=== PATIENT | male | born 1980 | race Caucasian/White ===

== ENCOUNTER 2016-12-07 21:40 | Emergency (ER) | payer MEDICARE, OTHER ==
[~2016-12-07] VITALS: Ht 175.3 cm; Wt 86.4 kg
[~2016-12-07 21:40] MED LIST: OXYB5 PO
[2016-12-07 22:30] VITALS: BP 132/77
== END 2016-12-07 23:53 | disposition home or self-care (01) ==
LOC: EMS 21:43
DX: T42.6X5A Adverse effect of other antiepileptic and sedative-hypnotic drugs, initial encounter (principal); F12.10 Cannabis abuse, uncomplicated; E11.9 Type 2 diabetes mellitus without complications; F17.210 Nicotine dependence, cigarettes, uncomplicated; Z91.013 Allergy to seafood; Z88.6 Allergy status to analgesic agent; Z88.8 Allergy status to other drugs, medicaments and biological substances; Y92.89 Other specified places as the place of occurrence of the external cause
CPT/HCPCS: 99283

== ENCOUNTER 2016-12-09 23:26 | Inpatient (IN) | payer MEDICARE, MEDICAID ==
[~2016-12-09] VITALS: Ht 175.3 cm; Wt 64.7 kg
[2016-12-09 23:47] LABS: BASOPHILS % (AUTO) 0.9 % (0.0-2.0); EOSINOPHILS % (AUTO) 3.4 % (1.0-6.0); HEMATOCRIT 46.6 % (41-53); HEMOGLOBIN 15.6 g/dL (13.5-17.5); LYMPHOCYTES # (AUTO) 4.7 K/uL (1.0-4.8); LYMPHOCYTES % (AUTO) 41.8 % (22.0-44.0); MEAN CORPUSCULAR HEMOGLOBIN 32.1 pg (26.0-34.0); MEAN CORPUSCULAR HGB CONC 33.5 G/dL (31.0-37.0); MEAN CORPUSCULAR VOLUME 96 fL (80-100); MONOCYTES # (AUTO) 0.6 K/uL (0.1-1.0); MONOCYTES % (AUTO) 5.7 % (2.0-9.0); NEUTROPHILS # (AUTO) 5.4 K/uL (1.8-7.7); NEUTROPHILS % (AUTO) 48.2 % (40.0-70.0); PLATELET COUNT (AUTO) 257 K/uL (150-450); RED BLOOD CELL COUNT(AUTO) 4.86 MIL/uL (4.50-5.90); WHITE BLOOD COUNT (AUTO) 11.2 K/uL (4.5-11.0)
[2016-12-09 23:57] LABS: ANION GAP 11 mmol/L (8-16); CALCIUM, TOTAL 9.3 mg/dL (8.8-10.5); CARBON DIOXIDE 26 mmol/L (22-29); CHLORIDE 102 mmol/L (98-107); CREATININE 0.92 mg/dL (0.60-1.30); GLOMERULAR FILTR. RATE CALC > 60 mL/min (>60); POTASSIUM 4.1 mmol/L (3.5-5.1); SODIUM SERUM 139 mmol/L (136-145); UREA NITROGEN, BLOOD 15 mg/dL (7-18)
[2016-12-10 00:03] LABS: ALANINE AMINOTRANSFERASE 18 U/L (12-78); ALBUMIN 3.9 g/dL (3.4-5.0); ASPARTATE AMINOTRANSFERASE 11 U/L (15-37); BILIRUBIN,TOTAL 0.3 mg/dL (0.1-1.0); TOTAL PROTEIN, SERUM 7.7 g/dL (6.4-8.2)
[2016-12-10] MEDS ORDERED: ZOLPIDEM TARTRATE 10 MG TABLET PO PRN (00:15)
[2016-12-10] MEDS: LORazepam 2 MG TABLET PO PRN ×4 (03:01→19:17)
[2016-12-10 03:37] VITALS: BP 107/72
[2016-12-10] MEDS ORDERED: DiphenhydrAMINE HCL 50 MG/ML VIAL IM ONE (04:45)
[2016-12-10] MEDS ORDERED: INFLUENZA VIRUS VACCINE QVS 2016-17 (3YR+)/PF 60 MCG/0.5 ML SYRINGE IM ONE (04:45)
[2016-12-10] MEDS ORDERED: LORazepam 2 MG/ML VIAL IM ONE (04:45)
[2016-12-10] MEDS ORDERED: LORazepam 2 MG/ML VIAL ONE (04:48)
[2016-12-10] MEDS ORDERED: DiphenhydrAMINE HCL 50 MG/ML VIAL ONE (04:48)
[2016-12-10] MEDS: OLANZapine 5 MG RAPDIS TABLET PO PRN ×3 (08:06→19:17)
[2016-12-10 08:20] VITALS: BP 107/77
[2016-12-10 16:00] VITALS: BP 132/62
[2016-12-10] MEDS: DIVALPROEX SODIUM 500 MG ER TABLET PO SCH (20:11)
[2016-12-11 08:01] VITALS: BP 125/66
[2016-12-11] MEDS: LORazepam 2 MG TABLET PO PRN ×2 (08:24→15:46)
[2016-12-11] MEDS ORDERED: ACETAMINOPHEN 325 MG TABLET PO PRN (14:45)
[2016-12-11] MEDS ORDERED: PROMETHAZINE HCL 25 MG TABLET PO PRN (14:45)
[2016-12-11] MEDS ORDERED: HydrOXYzine PAMOATE 50 MG CAPSULE PO PRN (14:45)
[2016-12-11] MEDS ORDERED: GuaiFENesin/D-METHORPHAN [SUGAR-FREE] 200-20MG/10 ML SYRUP UDCUP PO PRN (14:45)
[2016-12-11] MEDS ORDERED: MAGNESIUM HYDROXIDE SUSPENSION 30 ML UDCUP PO PRN (14:45)
[2016-12-11] MEDS ORDERED: LOPERAMIDE HCL 2 MG CAPSULE PO PRN (14:45)
[2016-12-11] MEDS ORDERED: MAG HYDROX/AL HYDROX/SIMETH ES 30 ML SUSPENSION UDCUP PO PRN (14:45)
[2016-12-11 16:00] VITALS: BP 105/62
[2016-12-11] MEDS: THIAMINE HCL 100 MG TABLET PO SCH (17:00)
[2016-12-11] MEDS ORDERED: TraZODone HCL 100 MG TABLET PO SCH (21:00)
[2016-12-11] MEDS ORDERED: OLANZapine 10 MG RAPDIS TABLET PO SCH (21:00)
[2016-12-11] MEDS ORDERED: QUEtiapine FUMARATE 200 MG TABLET PO SCH (21:00)
[2016-12-11] MEDS: DIVALPROEX SODIUM 500 MG ER TABLET PO SCH (21:38)
[2016-12-12 00:49] VITALS: BP 118/60
[2016-12-12] MEDS: LORazepam 2 MG TABLET PO PRN ×3 (01:37→13:37)
[2016-12-12] MEDS: QUEtiapine FUMARATE 100 MG TABLET PO PRN ×3 (01:37→13:37)
[2016-12-12 08:01] VITALS: BP 103/60
[2016-12-12] MEDS ORDERED: MULTIVITAMINS WITH MINERALS, THERAPEUTIC TABLET PO SCH (09:00)
[2016-12-12] MEDS ORDERED: FOLIC ACID 1 MG TABLET PO SCH (09:00)
[2016-12-12] MEDS ORDERED: NALTREXONE HCL 50 MG TABLET PO SCH (09:00)
[2016-12-12] MEDS: THIAMINE HCL 100 MG TABLET PO SCH (09:27)
[2016-12-12] MEDS ORDERED: BISACODYL 5 MG EC TABLET PO PRN (12:00)
[2016-12-12] MEDS ORDERED: DIVA500T52 PO (13:43)
[2016-12-12] MEDS ORDERED: TRAZ-147 PO (13:43)
[2016-12-12] MEDS ORDERED: NALT50 PO (13:43)
[2016-12-12] MEDS ORDERED: QUET200T29 PO (13:43)
== END 2016-12-12 15:14 | disposition home or self-care (01) | DRG 885 ==
LOC: EMS 23:28 → B3A 12-10 00:10
PROVIDERS: ATTEND Psychiatry & Neurology Psychiatry
DX: F25.0 Schizoaffective disorder, bipolar type (principal); R45.851 Suicidal ideations; D72.828 Other elevated white blood cell count; K59.00 Constipation, unspecified; I10 Essential (primary) hypertension; J45.909 Unspecified asthma, uncomplicated; E11.9 Type 2 diabetes mellitus without complications; R32 Unspecified urinary incontinence; F41.9 Anxiety disorder, unspecified; G47.00 Insomnia, unspecified; F17.210 Nicotine dependence, cigarettes, uncomplicated; F12.10 Cannabis abuse, uncomplicated; Z88.8 Allergy status to other drugs, medicaments and biological substances; Z91.018 Allergy to other foods; Z79.899 Other long term (current) drug therapy; Z71.51 Drug abuse counseling and surveillance of drug abuser; Z91.19 Patient's noncompliance with other medical treatment and regimen; Z28.21 Immunization not carried out because of patient refusal
CPT/HCPCS: 87081; 99285; A0429; G0480; J1200; J2060

== ENCOUNTER 2017-02-04 21:39 | Emergency (ER) | payer MEDICARE, OTHER ==
[~2017-02-04] VITALS: Ht 177.8 cm; Wt 63.6 kg
[~2017-02-04 21:39] MED LIST changes: +DIVA500T52 PO; +NALT50 PO; +QUET200T29 PO; +TRAZ-147 PO
[2017-02-04] MEDS ORDERED: TRIL PO (21:59)
[2017-02-04] MEDS ORDERED: OLAN10TA3 PO (21:59)
[2017-02-04] MEDS ORDERED: ZOLP10 PO (21:59)
[2017-02-04] MEDS ORDERED: PARO20TA24 PO (21:59)
[2017-02-04 22:07] LABS: GLUCOSE,POINT OF CARE 141 MG/DL (70-110)
[2017-02-04 22:32] LABS: BASOPHILS # (AUTO) 0.06 K/uL (0.00-0.20); BASOPHILS % (AUTO) 0.4 % (0.0-2.0); EOSINOPHILS # (AUTO) 0.11 K/uL (0.00-0.70); EOSINOPHILS % (AUTO) 0.76 % (1.0-6.0); HEMATOCRIT 40.6 % (41-53); HEMOGLOBIN 13.9 g/dL (13.5-17.5); LYMPHOCYTES # (AUTO) 3.2 K/uL (1.0-4.8); LYMPHOCYTES % (AUTO) 22.3 % (22.0-44.0); MEAN CORPUSCULAR HEMOGLOBIN 33.4 pg (26.0-34.0); MEAN CORPUSCULAR HGB CONC 34.1 G/dL (31.0-37.0); MEAN CORPUSCULAR VOLUME 98 fL (80-100); MONOCYTES # (AUTO) 0.6 K/uL (0.1-1.0); MONOCYTES % (AUTO) 4.2 % (2.0-9.0); NEUTROPHILS # (AUTO) 10.3 K/uL (1.8-7.7); NEUTROPHILS % (AUTO) 72.3 % (40.0-70.0); PLATELET COUNT (AUTO) 278 K/uL (150-450); RED BLOOD CELL COUNT(AUTO) 4.15 MIL/uL (4.50-5.90); RED CELL DISTRIBUTION WIDTH 14.4 % (11.5-14.5); WHITE BLOOD COUNT (AUTO) 14.3 K/uL (4.5-11.0)
[2017-02-04 22:40] LABS: ANION GAP 9 mmol/L (8-16); CALCIUM, TOTAL 8.9 mg/dL (8.8-10.5); CARBON DIOXIDE 25 mmol/L (22-29); CHLORIDE 105 mmol/L (98-107); GLOMERULAR FILTR. RATE CALC > 60 mL/min (>60); POTASSIUM 3.7 mmol/L (3.5-5.1); SODIUM SERUM 139 mmol/L (136-145); UREA NITROGEN, BLOOD 9 mg/dL (7-18)
[2017-02-04 22:45] LABS: ALANINE AMINOTRANSFERASE 19 U/L (12-78); ALBUMIN 3.7 g/dL (3.4-5.0); ASPARTATE AMINOTRANSFERASE 15 U/L (15-37); BILIRUBIN,TOTAL 0.2 mg/dL (0.1-1.0); TOTAL PROTEIN, SERUM 6.9 g/dL (6.4-8.2)
[2017-02-05 01:41] VITALS: BP 118/80
[2017-02-05] MEDS ORDERED: LORazepam 1 MG TABLET PO ONE (01:45)
[2017-02-05] MEDS ORDERED: OLANZapine 5 MG TABLET PO ONE (01:45)
== END 2017-02-05 01:46 | disposition home or self-care (01) ==
LOC: EMS 21:42
DX: F25.9 Schizoaffective disorder, unspecified (principal); S50.812A Abrasion of left forearm, initial encounter; F41.9 Anxiety disorder, unspecified; E11.9 Type 2 diabetes mellitus without complications; F17.210 Nicotine dependence, cigarettes, uncomplicated; Z88.8 Allergy status to other drugs, medicaments and biological substances; X78.8XXA Intentional self-harm by other sharp object, initial encounter; Y93.89 Activity, other specified; Y92.89 Other specified places as the place of occurrence of the external cause; Y99.8 Other external cause status
CPT/HCPCS: 36415; 80053; 80307; 82962; 85025; 99285; G0480

== ENCOUNTER 2017-02-24 20:27 | Inpatient (IN) | payer MEDICARE, MEDICAID ==
[~2017-02-24] VITALS: Ht 177.8 cm; Wt 59.9 kg
[~2017-02-24 20:27] MED LIST changes: -DIVA500T52 PO; -NALT50 PO; +OLAN10TA3 PO; -OXYB5 PO; +PARO20TA24 PO; -QUET200T29 PO; -TRAZ-147 PO; +TRIL PO; +ZOLP10 PO
[2017-02-24 22:15] LABS: BASOPHILS % (AUTO) 1.2 % (0.0-2.0); EOSINOPHILS % (AUTO) 0.9 % (1.0-6.0); HEMATOCRIT 44.1 % (41-53); HEMOGLOBIN 14.3 g/dL (13.5-17.5); LYMPHOCYTES % (AUTO) 18.4 % (22.0-44.0); MEAN CORPUSCULAR HEMOGLOBIN 32.5 pg (26.0-34.0); MEAN CORPUSCULAR HGB CONC 32.4 G/dL (31.0-37.0); MEAN CORPUSCULAR VOLUME 100 fL (80-100); MONOCYTES % (AUTO) 4.8 % (2.0-9.0); NEUTROPHILS % (AUTO) 74.7 % (40.0-70.0); PLATELET COUNT (AUTO) 310 K/uL (150-450); RED CELL DISTRIBUTION WIDTH 13.6 % (11.5-14.5); WHITE BLOOD COUNT (AUTO) 21.5 K/uL (4.5-11.0)
[2017-02-24 22:33] LABS: ANION GAP 10 mmol/L (8-16); CARBON DIOXIDE 27 mmol/L (22-29); CHLORIDE 99 mmol/L (98-107); CREATININE 0.82 mg/dL (0.60-1.30); GLOMERULAR FILTR. RATE CALC > 60 mL/min (>60); POTASSIUM 4.2 mmol/L (3.5-5.1); SODIUM SERUM 136 mmol/L (136-145); UREA NITROGEN, BLOOD 7 mg/dL (7-18)
[2017-02-24 22:45] LABS: ALANINE AMINOTRANSFERASE 19 U/L (12-78); ALBUMIN 3.7 g/dL (3.4-5.0); ASPARTATE AMINOTRANSFERASE 16 U/L (15-37); BILIRUBIN,TOTAL 0.2 mg/dL (0.1-1.0); TOTAL PROTEIN, SERUM 7.1 g/dL (6.4-8.2)
[2017-02-25] MEDS ORDERED: ZOLPIDEM TARTRATE 10 MG TABLET PO PRN (02:30)
[2017-02-25 08:06] LABS: APPEARANCE,URINE CLEAR (CLEAR); GLUCOSE, URINE (UA) NEGATIVE (NEGATIVE); KETONES,URINE NEGATIVE (NEGATIVE); LEUKOCYTE ESTERASE ,URINE NEGATIVE (NEGATIVE); OCCULT BLOOD,URINE NEGATIVE (NEGATIVE); PH,URINE 6.5 (5.0-8.0); PROTEIN,URINE NEGATIVE (NEGATIVE)
[2017-02-25 08:07] LABS: ADD UA MICROSCOPIC NO
[2017-02-25 16:06] VITALS: BP 100/63
[2017-02-25] MEDS: LORazepam 2 MG TABLET PO PRN (16:20)
[2017-02-25] MEDS ORDERED: GLUCAGON,HUMAN RECOMBINANT 1 MG VIAL IM PRN (18:00)
[2017-02-25] MEDS ORDERED: INSULIN ASPART 100 UNITS/ML SQ PRN (18:00)
[2017-02-26 06:42] VITALS: BP 112/79
[2017-02-26] MEDS: LORazepam 2 MG TABLET PO PRN ×3 (06:47→18:54)
[2017-02-26] MEDS ORDERED: PROMETHAZINE HCL 25 MG TABLET PO PRN (12:30)
[2017-02-26] MEDS ORDERED: LOPERAMIDE HCL 2 MG CAPSULE PO PRN (12:30)
[2017-02-26] MEDS ORDERED: MAG HYDROX/AL HYDROX/SIMETH ES 30 ML SUSPENSION UDCUP PO PRN (12:30)
[2017-02-26] MEDS ORDERED: ACETAMINOPHEN 325 MG TABLET PO PRN (12:30)
[2017-02-26] MEDS ORDERED: GuaiFENesin/D-METHORPHAN [SUGAR-FREE] 200-20MG/10 ML SYRUP UDCUP PO PRN (12:30)
[2017-02-26] MEDS ORDERED: MAGNESIUM HYDROXIDE SUSPENSION 30 ML UDCUP PO PRN (12:30)
[2017-02-26] MEDS: OLANZapine 5 MG TABLET PO PRN (14:52)
[2017-02-26] MEDS: HydrOXYzine PAMOATE 50 MG CAPSULE PO PRN ×2 (14:52→18:54)
[2017-02-26] MEDS ORDERED: OLANZAPINE PAMOATE 405 MG/2.7 ML VIAL IM ONE (15:15)
[2017-02-26] MEDS ORDERED: LORazepam 2 MG/ML VIAL ONE (15:22)
[2017-02-26] MEDS ORDERED: DiphenhydrAMINE HCL 50 MG/ML VIAL ONE (15:22)
[2017-02-26] MEDS ORDERED: HALOPERIDOL LACTATE 5 MG/ML VIAL ONE (15:22)
[2017-02-26] MEDS ORDERED: DiphenhydrAMINE HCL 50 MG/ML VIAL IM ONE (15:30)
[2017-02-26] MEDS ORDERED: HALOPERIDOL LACTATE 5 MG/ML VIAL IM ONE (15:30)
[2017-02-26] MEDS ORDERED: LORazepam 2 MG/ML VIAL IM ONE (15:30)
[2017-02-26 16:03] VITALS: BP 102/63
[2017-02-26] MEDS: THIAMINE HCL 100 MG TABLET PO SCH (17:04)
[2017-02-26] MEDS ORDERED: OLANZapine 5 MG RAPDIS TABLET PO SCH (21:00)
[2017-02-26] MEDS ORDERED: DIVALPROEX SODIUM 500 MG ER TABLET PO SCH (21:00)
[2017-02-27 01:24] VITALS: BP 106/72
[2017-02-27 08:00] VITALS: BP 102/70
[2017-02-27] MEDS: LORazepam 2 MG TABLET PO PRN (08:44)
[2017-02-27] MEDS: OLANZapine 5 MG TABLET PO PRN (08:44)
[2017-02-27] MEDS: HydrOXYzine PAMOATE 50 MG CAPSULE PO PRN (08:44)
[2017-02-27] MEDS: THIAMINE HCL 100 MG TABLET PO SCH (08:45)
[2017-02-27] MEDS ORDERED: FOLIC ACID 1 MG TABLET PO SCH (09:00)
[2017-02-27] MEDS ORDERED: MULTIVITAMINS WITH MINERALS, THERAPEUTIC TABLET PO SCH (09:00)
[2017-02-27] MEDS ORDERED: NALTREXONE HCL 50 MG TABLET PO SCH (09:00)
[2017-02-27] MEDS ORDERED: HALOPERIDOL 5 MG TABLET PO PRN (11:00)
[2017-02-27] MEDS ORDERED: HALOPERIDOL DECANOATE 50 MG/ML VIAL IM ONE (11:00)
[2017-02-27] MEDS ORDERED: NALT50TA10 PO (11:41)
[2017-02-27] MEDS ORDERED: DIVA500T52 PO (11:41)
[2017-03-13] MEDS ORDERED: HALOPERIDOL DECANOATE 50 MG/ML VIAL IM SCH (09:00)
[2017-03-26] MEDS ORDERED: OLANZAPINE PAMOATE 405 MG/2.7 ML VIAL IM SCH (09:00)
== END 2017-02-27 14:00 | disposition home or self-care (01) | DRG 885 ==
LOC: EMS 20:30 → EEVIPCON 20:30 → B3A 02-25 13:37
PROVIDERS: ADMIT Psychiatry & Neurology Psychiatry; ATTEND Psychiatry & Neurology Psychiatry
PROC: GZHZZZZ Group Psychotherapy (ICD-10-PCS; principal; 2017-02-25)
PROC: GZ51ZZZ Individual Psychotherapy, Behavioral (ICD-10-PCS; 2017-02-25)
DX: F25.9 Schizoaffective disorder, unspecified (principal); F12.90 Cannabis use, unspecified, uncomplicated; E78.5 Hyperlipidemia, unspecified; D72.829 Elevated white blood cell count, unspecified; R32 Unspecified urinary incontinence; E11.9 Type 2 diabetes mellitus without complications; F19.10 Other psychoactive substance abuse, uncomplicated; I10 Essential (primary) hypertension; F17.210 Nicotine dependence, cigarettes, uncomplicated; G40.909 Epilepsy, unspecified, not intractable, without status epilepticus; R45.850 Homicidal ideations; Z72.89 Other problems related to lifestyle; Z88.8 Allergy status to other drugs, medicaments and biological substances; Z91.19 Patient's noncompliance with other medical treatment and regimen; Z83.3 Family history of diabetes mellitus; Z79.899 Other long term (current) drug therapy; Z79.4 Long term (current) use of insulin
CPT/HCPCS: 83036; 99285; G0480; J1200; J1630; J1631; J2060

== ENCOUNTER 2017-05-04 18:03 | Inpatient (IN) | payer MEDICARE, MEDICAID ==
[~2017-05-04] VITALS: Ht 175.3 cm; Wt 55.4 kg
[~2017-05-04 18:03] MED LIST changes: +DIVA500T52 PO; +NALT50TA10 PO; -OLAN10TA3 PO; -PARO20TA24 PO; -TRIL PO; -ZOLP10 PO
[2017-05-04 19:50] VITALS: BP 92/60
[2017-05-04] MEDS ORDERED: ACETAMINOPHEN 325 MG TABLET PO PRN (20:30)
[2017-05-04] MEDS ORDERED: PNEUMOCOCCAL VACCINE POLYVALENT 0.5 ML VIAL [PPSV23] IM ONE (21:15)
[2017-05-05] MEDS: LORazepam 2 MG TABLET PO PRN ×3 (02:20→16:54)
[2017-05-05] MEDS: ZOLPIDEM TARTRATE 10 MG TABLET PO PRN ×2 (02:20→21:03)
[2017-05-05 06:19] VITALS: BP 109/62
[2017-05-05 08:13] VITALS: BP 107/60
[2017-05-05 08:37] LABS: BASOPHILS # (AUTO) 0.04 K/uL (0.00-0.20); BASOPHILS % (AUTO) 0.4 % (0.0-2.0); EOSINOPHILS # (AUTO) 0.25 K/uL (0.00-0.70); EOSINOPHILS % (AUTO) 2.19 % (1.0-6.0); HEMATOCRIT 39.5 % (41-53); HEMOGLOBIN 13.2 g/dL (13.5-17.5); LYMPHOCYTES # (AUTO) 2.5 K/uL (1.0-4.8); LYMPHOCYTES % (AUTO) 21.9 % (22.0-44.0); MEAN CORPUSCULAR HEMOGLOBIN 33.1 pg (26.0-34.0); MEAN CORPUSCULAR HGB CONC 33.3 G/dL (31.0-37.0); MEAN CORPUSCULAR VOLUME 99 fL (80-100); MONOCYTES # (AUTO) 0.6 K/uL (0.1-1.0); MONOCYTES % (AUTO) 4.9 % (2.0-9.0); NEUTROPHILS % (AUTO) 70.6 % (40.0-70.0); PLATELET COUNT (AUTO) 276 K/uL (150-450); RED BLOOD CELL COUNT(AUTO) 3.98 MIL/uL (4.50-5.90); RED CELL DISTRIBUTION WIDTH 14.4 % (11.5-14.5); WHITE BLOOD COUNT (AUTO) 11.3 K/uL (4.5-11.0)
[2017-05-05 09:04] LABS: APPEARANCE,URINE CLEAR (CLEAR); GLUCOSE, URINE (UA) NEGATIVE (NEGATIVE); KETONES,URINE TRACE mg/dL (NEGATIVE); LEUKOCYTE ESTERASE ,URINE NEGATIVE (NEGATIVE); OCCULT BLOOD,URINE NEGATIVE (NEGATIVE); PROTEIN,URINE NEGATIVE (NEGATIVE)
[2017-05-05 09:11] LABS: ADD UA MICROSCOPIC NO
[2017-05-05 09:14] LABS: ALANINE AMINOTRANSFERASE 24 U/L (12-78); ALBUMIN 3.6 g/dL (3.4-5.0); ANION GAP 8 mmol/L (8-16); ASPARTATE AMINOTRANSFERASE 16 U/L (15-37); BILIRUBIN,TOTAL 0.3 mg/dL (0.1-1.0); CALCIUM, TOTAL 8.8 mg/dL (8.8-10.5); CARBON DIOXIDE 27 mmol/L (22-29); CHLORIDE 104 mmol/L (98-107); CHOL/HDL RATIO 2.7 (4.2-7.3); CREATININE 0.92 mg/dL (0.60-1.30); GLOMERULAR FILTR. RATE CALC > 60 mL/min (>60); POTASSIUM 4.1 mmol/L (3.5-5.1); SODIUM SERUM 139 mmol/L (136-145); THYROID STIMULATING HORMONE 0.47 uIU/mL (0.36-3.74); TOTAL PROTEIN, SERUM 6.3 g/dL (6.4-8.2); UREA NITROGEN, BLOOD 9 mg/dL (7-18)
[2017-05-05] MEDS: HALOPERIDOL 5 MG TABLET PO PRN ×2 (10:03→18:49)
[2017-05-05] MEDS: DIVALPROEX SODIUM 500 MG ER TABLET PO SCH (21:03)
[2017-05-05] MEDS: OLANZapine 5 MG RAPDIS TABLET PO SCH (21:04)
[2017-05-06] MEDS: HALOPERIDOL 5 MG TABLET PO PRN (08:37)
[2017-05-06] MEDS: LORazepam 2 MG TABLET PO PRN ×3 (08:37→17:53)
[2017-05-06 08:38] VITALS: BP 115/70
[2017-05-06 10:16] LABS: GLUCOSE,POINT OF CARE 95 MG/DL (70-110)
[2017-05-06 16:00] VITALS: BP 119/68
[2017-05-06] MEDS: OLANZapine 5 MG RAPDIS TABLET PO SCH (20:10)
[2017-05-06] MEDS: DIVALPROEX SODIUM 500 MG ER TABLET PO SCH (20:10)
[2017-05-06] MEDS: ZOLPIDEM TARTRATE 10 MG TABLET PO PRN (20:47)
[2017-05-07 06:30] VITALS: BP 108/57
[2017-05-07] MEDS: LORazepam 2 MG TABLET PO PRN ×3 (08:12→19:07)
[2017-05-07] MEDS: HALOPERIDOL 5 MG TABLET PO PRN ×2 (08:12→17:16)
[2017-05-07 08:33] VITALS: BP 116/67
[2017-05-07 11:37] LABS: GLUCOSE,POINT OF CARE 93 MG/DL (70-110)
[2017-05-07 16:00] VITALS: BP 112/66
[2017-05-07] MEDS: ZOLPIDEM TARTRATE 10 MG TABLET PO PRN (20:33)
[2017-05-07] MEDS: DIVALPROEX SODIUM 500 MG ER TABLET PO SCH (20:33)
[2017-05-07] MEDS: OLANZapine 5 MG RAPDIS TABLET PO SCH (20:33)
[2017-05-08 05:34] VITALS: BP 109/62
[2017-05-08] MEDS: LORazepam 2 MG TABLET PO PRN ×3 (06:29→17:47)
[2017-05-08 08:39] VITALS: BP 109/67
[2017-05-08 16:00] VITALS: BP 112/67
[2017-05-08] MEDS: OLANZapine 5 MG RAPDIS TABLET PO SCH (20:27)
[2017-05-08] MEDS: DIVALPROEX SODIUM 500 MG ER TABLET PO SCH (20:27)
[2017-05-08] MEDS: ZOLPIDEM TARTRATE 10 MG TABLET PO PRN (20:27)
[2017-05-09 03:25] VITALS: BP 102/64
[2017-05-09] MEDS: HALOPERIDOL 5 MG TABLET PO PRN ×2 (08:02→16:39)
[2017-05-09] MEDS: LORazepam 2 MG TABLET PO PRN ×4 (08:03→20:39)
[2017-05-09 08:59] VITALS: BP 110/68
[2017-05-09 16:00] VITALS: BP 114/66
[2017-05-09] MEDS: OLANZapine 5 MG RAPDIS TABLET PO SCH (20:39)
[2017-05-09] MEDS: ZOLPIDEM TARTRATE 10 MG TABLET PO PRN (20:39)
[2017-05-09] MEDS: DIVALPROEX SODIUM 500 MG ER TABLET PO SCH (20:39)
[2017-05-10 04:58] VITALS: BP 106/70
[2017-05-10 08:44] VITALS: BP 104/64
[2017-05-10 16:11] VITALS: BP 106/68
[2017-05-10] MEDS: LORazepam 2 MG TABLET PO PRN (18:52)
[2017-05-10] MEDS: OLANZapine 5 MG RAPDIS TABLET PO SCH (20:33)
[2017-05-10] MEDS: DIVALPROEX SODIUM 500 MG ER TABLET PO SCH (20:33)
[2017-05-10] MEDS: ZOLPIDEM TARTRATE 10 MG TABLET PO PRN (20:42)
[2017-05-11 05:24] VITALS: BP 104/67
[2017-05-11 08:29] LABS: BASOPHILS # (AUTO) 0.04 K/uL (0.00-0.20); BASOPHILS % (AUTO) 0.5 % (0.0-2.0); EOSINOPHILS # (AUTO) 0.12 K/uL (0.00-0.70); EOSINOPHILS % (AUTO) 1.66 % (1.0-6.0); HEMATOCRIT 41.2 % (41-53); HEMOGLOBIN 13.7 g/dL (13.5-17.5); LYMPHOCYTES # (AUTO) 2.4 K/uL (1.0-4.8); LYMPHOCYTES % (AUTO) 33.9 % (22.0-44.0); MEAN CORPUSCULAR HEMOGLOBIN 32.8 pg (26.0-34.0); MEAN CORPUSCULAR HGB CONC 33.2 G/dL (31.0-37.0); MEAN CORPUSCULAR VOLUME 99 fL (80-100); MONOCYTES # (AUTO) 0.4 K/uL (0.1-1.0); MONOCYTES % (AUTO) 5.1 % (2.0-9.0); NEUTROPHILS # (AUTO) 4.1 K/uL (1.8-7.7); NEUTROPHILS % (AUTO) 58.9 % (40.0-70.0); PLATELET COUNT (AUTO) 252 K/uL (150-450); RED BLOOD CELL COUNT(AUTO) 4.17 MIL/uL (4.50-5.90); RED CELL DISTRIBUTION WIDTH 14.4 % (11.5-14.5)
[2017-05-11] MEDS: HALOPERIDOL 5 MG TABLET PO PRN (08:31)
[2017-05-11] MEDS: LORazepam 2 MG TABLET PO PRN (08:31)
[2017-05-11 09:08] LABS: ANION GAP 8 mmol/L (8-16); CARBON DIOXIDE 27 mmol/L (22-29); CHLORIDE 106 mmol/L (98-107); CREATININE 0.79 mg/dL (0.60-1.30); GLOMERULAR FILTR. RATE CALC > 60 mL/min (>60); POTASSIUM 4.1 mmol/L (3.5-5.1); SODIUM SERUM 141 mmol/L (136-145); UREA NITROGEN, BLOOD 12 mg/dL (7-18)
[2017-05-11 09:15] VITALS: BP 104/67
[2017-05-11] MEDS ORDERED: OLAN5Z PO (13:47)
[2017-05-14] MEDS ORDERED: TEMA15CA PO (18:44)
[2017-05-14] MEDS ORDERED: QUET300T2 PO (18:44)
[2017-05-14] MEDS ORDERED: ZIPR20CA2 PO (18:44)
[2017-05-14] MEDS ORDERED: SERT50TA12 PO (18:44)
[2017-05-14] MEDS ORDERED: TRAZ-147 PO (18:44)
[2017-05-14] MEDS ORDERED: BUPR75 PO (18:44)
[2017-05-14] MEDS ORDERED: ZOLP5 PO (18:44)
[2017-05-14] MEDS ORDERED: OXCA300T PO (18:44)
[2017-05-14] MEDS ORDERED: LORA1TAB3 PO (18:44)
== END 2017-05-11 15:50 | disposition home or self-care (01) | DRG 885 ==
LOC: B3A 20:20 → EDSTATUS 20:39
PROVIDERS: ADMIT Psychiatry & Neurology Psychiatry; ATTEND Psychiatry & Neurology Psychiatry
DX: F20.9 Schizophrenia, unspecified (principal); R32 Unspecified urinary incontinence; D72.829 Elevated white blood cell count, unspecified; E78.5 Hyperlipidemia, unspecified; D64.9 Anemia, unspecified; R63.4 Abnormal weight loss
CPT/HCPCS: 82962; 84439; 84443; 87081

== ENCOUNTER 2017-07-15 20:55 | Emergency (ER) | payer MEDICARE, OTHER ==
[~2017-07-15] VITALS: Ht 175.3 cm; Wt 75.0 kg
[~2017-07-15 20:55] MED LIST changes: -NALT50TA10 PO; +OLAN5TAB40 PO
[2017-07-15 21:34] LABS: BASOPHILS # (AUTO) 0.04 K/uL (0.00-0.20); BASOPHILS % (AUTO) 0.4 % (0.0-2.0); EOSINOPHILS # (AUTO) 0.14 K/uL (0.00-0.70); EOSINOPHILS % (AUTO) 1.31 % (1.0-6.0); HEMOGLOBIN 14.4 g/dL (13.5-17.5); LYMPHOCYTES # (AUTO) 3.8 K/uL (1.0-4.8); LYMPHOCYTES % (AUTO) 35.1 % (22.0-44.0); MEAN CORPUSCULAR HEMOGLOBIN 33.8 pg (26.0-34.0); MEAN CORPUSCULAR HGB CONC 34.2 G/dL (31.0-37.0); MEAN CORPUSCULAR VOLUME 99 fL (80-100); MONOCYTES # (AUTO) 0.6 K/uL (0.1-1.0); MONOCYTES % (AUTO) 5.4 % (2.0-9.0); NEUTROPHILS # (AUTO) 6.4 K/uL (1.8-7.7); NEUTROPHILS % (AUTO) 57.9 % (40.0-70.0); PLATELET COUNT (AUTO) 234 K/uL (150-450); RED BLOOD CELL COUNT(AUTO) 4.25 MIL/uL (4.50-5.90); RED CELL DISTRIBUTION WIDTH 14.2 % (11.5-14.5)
[2017-07-15 21:46] LABS: ANION GAP 11 mmol/L (8-16); CALCIUM, TOTAL 9.1 mg/dL (8.8-10.5); CARBON DIOXIDE 28 mmol/L (22-29); CHLORIDE 104 mmol/L (98-107); CREATININE 0.79 mg/dL (0.60-1.30); GLOMERULAR FILTR. RATE CALC > 60 mL/min (>60); POTASSIUM 3.7 mmol/L (3.5-5.1); SODIUM SERUM 143 mmol/L (136-145); UREA NITROGEN, BLOOD 10 mg/dL (7-18)
[2017-07-15 21:58] LABS: ALANINE AMINOTRANSFERASE 23 U/L (12-78); ASPARTATE AMINOTRANSFERASE 16 U/L (15-37); BILIRUBIN,TOTAL 0.4 mg/dL (0.1-1.0); TOTAL PROTEIN, SERUM 7.6 g/dL (6.4-8.2)
[2017-07-15] MEDS ORDERED: HALOPERIDOL 5 MG TABLET PO ONE (23:45)
[2017-07-15 23:55] VITALS: BP 121/87
== END 2017-07-15 23:56 | disposition home or self-care (01) ==
LOC: EMS 20:58
DX: F20.9 Schizophrenia, unspecified (principal); E11.9 Type 2 diabetes mellitus without complications; F17.210 Nicotine dependence, cigarettes, uncomplicated; Z88.8 Allergy status to other drugs, medicaments and biological substances; Z91.013 Allergy to seafood
CPT/HCPCS: 99284

== ENCOUNTER 2017-07-16 02:43 | Emergency (ER) | payer MEDICARE, OTHER ==
[~2017-07-16] VITALS: Ht 175.3 cm; Wt 75.0 kg
[2017-07-16 02:45] VITALS: BP 126/64
== END 2017-07-16 03:05 | disposition home or self-care (01) ==
LOC: EMS 02:45
DX: M25.571 Pain in right ankle and joints of right foot (principal); F41.9 Anxiety disorder, unspecified; F20.9 Schizophrenia, unspecified; E11.9 Type 2 diabetes mellitus without complications; F17.210 Nicotine dependence, cigarettes, uncomplicated; Z88.6 Allergy status to analgesic agent; Z88.8 Allergy status to other drugs, medicaments and biological substances; Z91.013 Allergy to seafood
CPT/HCPCS: 99281

== ENCOUNTER 2017-07-16 20:31 | Emergency (ER) | payer MEDICARE, OTHER | END 2017-07-16 21:11 | disposition left against medical advice (07) | LOC: EMS 20:39 | DX: T17.998A Other foreign object in respiratory tract, part unspecified causing other injury, initial encounter (principal); Z53.21 Procedure and treatment not carried out due to patient leaving prior to being seen by health care provider ==

== ENCOUNTER 2017-07-16 23:28 | Emergency (ER) | payer MEDICARE, OTHER ==
[~2017-07-16] VITALS: Ht 177.8 cm; Wt 72.0 kg
[2017-07-16 23:48] LABS: BASOPHILS # (AUTO) 0.04 K/uL (0.00-0.20); BASOPHILS % (AUTO) 0.3 % (0.0-2.0); EOSINOPHILS # (AUTO) 0.21 K/uL (0.00-0.70); HEMATOCRIT 41.4 % (41-53); HEMOGLOBIN 14.2 g/dL (13.5-17.5); LYMPHOCYTES # (AUTO) 3.3 K/uL (1.0-4.8); LYMPHOCYTES % (AUTO) 28.6 % (22.0-44.0); MEAN CORPUSCULAR HEMOGLOBIN 33.8 pg (26.0-34.0); MEAN CORPUSCULAR HGB CONC 34.4 G/dL (31.0-37.0); MEAN CORPUSCULAR VOLUME 99 fL (80-100); MONOCYTES # (AUTO) 0.8 K/uL (0.1-1.0); MONOCYTES % (AUTO) 7.1 % (2.0-9.0); NEUTROPHILS # (AUTO) 7.2 K/uL (1.8-7.7); NEUTROPHILS % (AUTO) 62.2 % (40.0-70.0); PLATELET COUNT (AUTO) 251 K/uL (150-450); RED CELL DISTRIBUTION WIDTH 14.1 % (11.5-14.5); WHITE BLOOD COUNT (AUTO) 11.5 K/uL (4.5-11.0)
[2017-07-17 00:11] LABS: ANION GAP 9 mmol/L (8-16); CALCIUM, TOTAL 8.7 mg/dL (8.8-10.5); CARBON DIOXIDE 26 mmol/L (22-29); CHLORIDE 107 mmol/L (98-107); CREATININE 0.82 mg/dL (0.60-1.30); GLOMERULAR FILTR. RATE CALC > 60 mL/min (>60); POTASSIUM 3.5 mmol/L (3.5-5.1); SODIUM SERUM 142 mmol/L (136-145); UREA NITROGEN, BLOOD 16 mg/dL (7-18)
[2017-07-17] MEDS ORDERED: LORazepam 2 MG TABLET PO ONE (00:15)
[2017-07-17 00:17] LABS: ALANINE AMINOTRANSFERASE 20 U/L (12-78); ALBUMIN 3.9 g/dL (3.4-5.0); ASPARTATE AMINOTRANSFERASE 14 U/L (15-37); BILIRUBIN,TOTAL 0.3 mg/dL (0.1-1.0); TOTAL PROTEIN, SERUM 7.5 g/dL (6.4-8.2)
[2017-07-17 00:36] VITALS: BP 119/77
== END 2017-07-17 01:08 | disposition home or self-care (01) ==
LOC: EMS 23:29
DX: F91.2 Conduct disorder, adolescent-onset type (principal); F41.9 Anxiety disorder, unspecified; F20.9 Schizophrenia, unspecified; F17.210 Nicotine dependence, cigarettes, uncomplicated; E11.9 Type 2 diabetes mellitus without complications; Z88.6 Allergy status to analgesic agent; Z88.8 Allergy status to other drugs, medicaments and biological substances; Z91.013 Allergy to seafood
CPT/HCPCS: 36415; 80053; 85025; 99285; 99406; G0480

== ENCOUNTER 2018-03-04 19:37 | Emergency (ER) | payer MEDICARE, OTHER ==
[~2018-03-04] VITALS: Ht 175.3 cm; Wt 95.0 kg
[2018-03-04] MEDS ORDERED: ATOR10TA84 PO (19:56)
[2018-03-04] MEDS ORDERED: HYDR50CA10 PO (19:56)
[2018-03-04 21:34] LABS: BASOPHILS % (AUTO) 0.5 % (0.0-2.0); EOSINOPHILS % (AUTO) 0.6 % (1.0-6.0); HEMATOCRIT 42.8 % (41-53); HEMOGLOBIN 14.9 g/dL (13.5-17.5); LYMPHOCYTES # (AUTO) 2.9 K/uL (1.0-4.8); LYMPHOCYTES % (AUTO) 36.9 % (22.0-44.0); MEAN CORPUSCULAR HEMOGLOBIN 32.1 pg (26.0-34.0); MEAN CORPUSCULAR HGB CONC 34.9 G/dL (31.0-37.0); MEAN CORPUSCULAR VOLUME 92 fL (80-100); MONOCYTES # (AUTO) 0.9 K/uL (0.1-1.0); MONOCYTES % (AUTO) 11.7 % (2.0-9.0); NEUTROPHILS # (AUTO) 3.9 K/uL (1.8-7.7); NEUTROPHILS % (AUTO) 50.3 % (40.0-70.0); PLATELET COUNT (AUTO) 196 K/uL (150-450); RED BLOOD CELL COUNT(AUTO) 4.65 MIL/uL (4.50-5.90); RED CELL DISTRIBUTION WIDTH 13.4 % (11.5-14.5)
[2018-03-04 21:42] LABS: ANION GAP 5 mmol/L (8-16); CALCIUM, TOTAL 9.5 mg/dL (8.8-10.5); CARBON DIOXIDE 30 mmol/L (22-29); CHLORIDE 104 mmol/L (98-107); CREATININE 0.92 mg/dL (0.60-1.30); GLOMERULAR FILTR. RATE CALC > 60 mL/min (>60); GLUCOSE,RANDOM 104 mg/dL (70-110); SODIUM SERUM 139 mmol/L (136-145); UREA NITROGEN, BLOOD 13 mg/dL (7-18)
[2018-03-04 21:45] VITALS: BP 126/84
[2018-03-04 21:48] LABS: ALANINE AMINOTRANSFERASE 67 U/L (12-78); ALBUMIN 3.7 g/dL (3.4-5.0); ALKALINE PHOSPHATASE 89 U/L (46-116); ASPARTATE AMINOTRANSFERASE 37 U/L (15-37); BILIRUBIN,TOTAL 0.3 mg/dL (0.1-1.0); TOTAL PROTEIN, SERUM 7.6 g/dL (6.4-8.2); VALPROIC ACID 73 mcg/mL (50-100)
[2018-03-04] MEDS ORDERED: LORazepam 1 MG TABLET PO ONE (22:15)
== END 2018-03-04 22:47 | disposition home or self-care (01) ==
LOC: EMS 19:39
DX: F41.0 Panic disorder [episodic paroxysmal anxiety] (principal); F25.9 Schizoaffective disorder, unspecified; R00.2 Palpitations; R06.02 Shortness of breath; E11.9 Type 2 diabetes mellitus without complications; F17.210 Nicotine dependence, cigarettes, uncomplicated; Z88.8 Allergy status to other drugs, medicaments and biological substances; Z91.013 Allergy to seafood
CPT/HCPCS: 36415; 80053; 80164; 85025; 99284; G0480

== ENCOUNTER 2018-03-14 17:28 | Emergency (ER) | payer MEDICARE, OTHER ==
[~2018-03-14] VITALS: Ht 172.7 cm; Wt 95.5 kg
[~2018-03-14 17:28] MED LIST changes: +ATOR10TA84 PO; +HYDR50CA10 PO
[2018-03-14] MEDS ORDERED: ACETAMINOPHEN 500 MG TABLET PO ONE (17:45)
[2018-03-14 17:49] LABS: BASOPHILS % (AUTO) 0.8 % (0.0-2.0); EOSINOPHILS % (AUTO) 2.1 % (1.0-6.0); HEMOGLOBIN 15.1 g/dL (13.5-17.5); LYMPHOCYTES # (AUTO) 2.6 K/uL (1.0-4.8); LYMPHOCYTES % (AUTO) 35.5 % (22.0-44.0); MEAN CORPUSCULAR HEMOGLOBIN 32.3 pg (26.0-34.0); MEAN CORPUSCULAR HGB CONC 35.2 G/dL (31.0-37.0); MEAN CORPUSCULAR VOLUME 92 fL (80-100); MONOCYTES # (AUTO) 0.8 K/uL (0.1-1.0); NEUTROPHILS # (AUTO) 3.7 K/uL (1.8-7.7); NEUTROPHILS % (AUTO) 50.6 % (40.0-70.0); PLATELET COUNT (AUTO) 203 K/uL (150-450); RED BLOOD CELL COUNT(AUTO) 4.67 MIL/uL (4.50-5.90); RED CELL DISTRIBUTION WIDTH 13.4 % (11.5-14.5)
[2018-03-14] MEDS ORDERED: FE PR (17:54)
[2018-03-14] MEDS ORDERED: OLAN10TA3 PO (17:54)
[2018-03-14] MEDS ORDERED: MOM30 PO (17:54)
[2018-03-14] MEDS ORDERED: TRIH2TAB3 PO (17:54)
[2018-03-14] MEDS ORDERED: IBUP-2071 PO (17:54)
[2018-03-14] MEDS ORDERED: CHLO100T24 PO (17:54)
[2018-03-14] MEDS ORDERED: SIME120L PO (17:54)
[2018-03-14] MEDS ORDERED: LORA2TAB2 PO (17:54)
[2018-03-14] MEDS ORDERED: TRAZ-147 PO (17:54)
[2018-03-14] MEDS ORDERED: BISA10S PR (17:54)
[2018-03-14] MEDS ORDERED: LORA4VIA19 IM (17:54)
[2018-03-14] MEDS ORDERED: OLAN10VI3 IM (17:54)
[2018-03-14] MEDS ORDERED: ZOLP10TA7 PO (17:54)
[2018-03-14 17:58] LABS: ANION GAP 6 mmol/L (8-16); CALCIUM, TOTAL 8.7 mg/dL (8.8-10.5); CARBON DIOXIDE 27 mmol/L (22-29); CHLORIDE 104 mmol/L (98-107); CREATININE 0.89 mg/dL (0.60-1.30); GLOMERULAR FILTR. RATE CALC > 60 mL/min (>60); GLUCOSE,RANDOM 129 mg/dL (70-110); POTASSIUM 3.9 mmol/L (3.5-5.1); SODIUM SERUM 137 mmol/L (136-145); UREA NITROGEN, BLOOD 14 mg/dL (7-18)
[2018-03-14 18:03] LABS: ALANINE AMINOTRANSFERASE 92 U/L (12-78); ALBUMIN 3.6 g/dL (3.4-5.0); ALKALINE PHOSPHATASE 98 U/L (46-116); ASPARTATE AMINOTRANSFERASE 62 U/L (15-37); BILIRUBIN,TOTAL 0.4 mg/dL (0.1-1.0); TOTAL PROTEIN, SERUM 7.5 g/dL (6.4-8.2); VALPROIC ACID 23 mcg/mL (50-100)
[2018-03-14 19:06] LABS: AMPHET/METH SCREEN,URINE NEGATIVE (NEGATIVE); BARBITURATE SCREEN, URINE NEGATIVE (NEGATIVE); BENZODIAZEPINES SCREEN,URINE POSITIVE (NEGATIVE); CANNABINOID SCREEN,URINE NEGATIVE (NEGATIVE); COCAINE SCREEN,URINE NEGATIVE (NEGATIVE); METHADONE SCREEN, URINE NEGATIVE (NEGATIVE); OPIATE SCREEN,URINE NEGATIVE (NEGATIVE)
[2018-03-14 19:07] LABS: PHENCYCLIDINE SCREEN,URINE NEGATIVE (NEGATIVE)
[2018-03-14] MEDS ORDERED: LIDOCAINE HCL/PF 1% 5 ML VIAL ONE (19:28)
[2018-03-14] MEDS ORDERED: CefTRIAXone SODIUM 1 GM/VIAL IM ONE (19:30)
[2018-03-14] MEDS ORDERED: DOXYCYCLINE HYCLATE 100 MG CAPSULE PO ONE (19:30)
[2018-03-14] MEDS ORDERED: LORazepam 2 MG/ML VIAL ONE (19:38)
[2018-03-14] MEDS ORDERED: DiphenhydrAMINE HCL 50 MG/ML VIAL ONE (19:39)
[2018-03-14] MEDS ORDERED: DiphenhydrAMINE HCL 50 MG/ML VIAL IM ONE (19:45)
[2018-03-14] MEDS ORDERED: LORazepam 2 MG/ML VIAL IM ONE (19:45)
[2018-03-14 21:25] VITALS: BP 127/83
[2018-03-14 21:46] LABS: APPEARANCE,URINE SLIGHTLY CLOUDY (CLEAR); GLUCOSE, URINE (UA) NEGATIVE (NEGATIVE); OCCULT BLOOD,URINE NEGATIVE (NEGATIVE); PROTEIN,URINE POS 1+ (NEGATIVE)
[2018-03-14 21:47] LABS: BILIRUBIN,URINE PRELIM. POSITIVE (NEGATIVE); KETONES,URINE 15 mg/dL (NEGATIVE); LEUKOCYTE ESTERASE ,URINE NEGATIVE (NEGATIVE); NITRATE,URINE NEGATIVE (NEGATIVE)
[2018-03-14 21:49] LABS: RBC,URINE 0-2 /HPF (0-2); WBC,URINE 0-2 /HPF (0-5)
[2018-03-14 21:50] LABS: BACTERIA,URINE Rare /HPF (None Seen); MUCUS,URINE Few LPF (None Seen); SQUAMOUS EPITHELIAL CELL,UR Rare /LPF (None Seen)
== END 2018-03-14 23:48 | disposition home or self-care (01) ==
LOC: EMS 17:30
DX: F25.9 Schizoaffective disorder, unspecified (principal); N45.1 Epididymitis; F41.9 Anxiety disorder, unspecified; E11.9 Type 2 diabetes mellitus without complications; F17.210 Nicotine dependence, cigarettes, uncomplicated; Z79.899 Other long term (current) drug therapy; Z88.8 Allergy status to other drugs, medicaments and biological substances
CPT/HCPCS: 36415; 76870; 80053; 80164; 80307; 81001; 85025; 96372; 99285; 99406; G0480; J0696; J1200; J2060; J3490

== ENCOUNTER 2018-04-23 13:34 | Emergency (ER) | payer MEDICARE, OTHER ==
[~2018-04-23] VITALS: Ht 175.3 cm; Wt 91.8 kg
[~2018-04-23 13:34] MED LIST changes: +BISA10S PR; +CHLO100T24 PO; +FE PR; +IBUP-2071 PO; +LORA2TAB2 PO; +LORA4VIA19 IM; +MOM30 PO; +OLAN10TA3 PO; +OLAN10VI3 IM; +SIME120L PO; +TRAZ-147 PO; +TRIH2TAB3 PO; +ZOLP10TA7 PO
[2018-04-23] MEDS ORDERED: TRAZ150 PO (15:07)
[2018-04-23] MEDS ORDERED: BACL5TAB PO (15:07)
[2018-04-23] MEDS ORDERED: FLUD25I IM (15:07)
[2018-04-23] MEDS ORDERED: METH4TAB16 PO (15:07)
[2018-04-23] MEDS ORDERED: GABA-531 PO (15:07)
[2018-04-23] MEDS ORDERED: LORA2TAB2 PO (15:07)
[2018-04-23] MEDS ORDERED: OLAN10TA3 PO ×2 (15:07)
[2018-04-23 15:27] LABS: AMPHET/METH SCREEN,URINE NEGATIVE (NEGATIVE); BARBITURATE SCREEN, URINE NEGATIVE (NEGATIVE); BENZODIAZEPINES SCREEN,URINE NEGATIVE (NEGATIVE); CANNABINOID SCREEN,URINE NEGATIVE (NEGATIVE); COCAINE SCREEN,URINE NEGATIVE (NEGATIVE); METHADONE SCREEN, URINE NEGATIVE (NEGATIVE); OPIATE SCREEN,URINE NEGATIVE (NEGATIVE); PHENCYCLIDINE SCREEN,URINE NEGATIVE (NEGATIVE)
[2018-04-23 16:00] LABS: APPEARANCE,URINE CLEAR (CLEAR); BILIRUBIN,URINE NEGATIVE (NEGATIVE); GLUCOSE, URINE (UA) 100 mg/dL (NEGATIVE); KETONES,URINE 15 mg/dL (NEGATIVE); LEUKOCYTE ESTERASE ,URINE NEGATIVE (NEGATIVE); NITRATE,URINE NEGATIVE (NEGATIVE); OCCULT BLOOD,URINE NEGATIVE (NEGATIVE); PH,URINE 7.5 (5.0-8.0); PROTEIN,URINE NEGATIVE (NEGATIVE); UROBILINOGEN,URINE 0.2 mg/dL (<=1.0)
[2018-04-23 16:16] LABS: BASOPHILS % (AUTO) 0.6 % (0.0-2.0); EOSINOPHILS % (AUTO) 0.4 % (1.0-6.0); HEMATOCRIT 42.9 % (41-53); HEMOGLOBIN 14.9 g/dL (13.5-17.5); LYMPHOCYTES # (AUTO) 3.5 K/uL (1.0-4.8); LYMPHOCYTES % (AUTO) 35.2 % (22.0-44.0); MEAN CORPUSCULAR HEMOGLOBIN 32.4 pg (26.0-34.0); MEAN CORPUSCULAR HGB CONC 34.8 G/dL (31.0-37.0); MEAN CORPUSCULAR VOLUME 93 fL (80-100); MONOCYTES # (AUTO) 0.8 K/uL (0.1-1.0); MONOCYTES % (AUTO) 7.6 % (2.0-9.0); NEUTROPHILS # (AUTO) 5.6 K/uL (1.8-7.7); NEUTROPHILS % (AUTO) 56.2 % (40.0-70.0); PLATELET COUNT (AUTO) 256 K/uL (150-450); RED CELL DISTRIBUTION WIDTH 14.1 % (11.5-14.5)
[2018-04-23 16:17] LABS: BACTERIA,URINE Rare /HPF (None Seen); RBC,URINE None Seen /HPF (0-2); WBC,URINE 0-2 /HPF (0-5)
[2018-04-23 16:18] LABS: SQUAMOUS EPITHELIAL CELL,UR None Seen /LPF (None Seen)
[2018-04-23 16:19] LABS: TRIPLE PHOSPHATE CRYSTAL,UR Few /LPF (None Seen)
[2018-04-23 16:26] LABS: ANION GAP 7 mmol/L (8-16); CALCIUM, TOTAL 8.6 mg/dL (8.8-10.5); CARBON DIOXIDE 29 mmol/L (22-29); CHLORIDE 106 mmol/L (98-107); CREATININE 0.82 mg/dL (0.60-1.30); GLOMERULAR FILTR. RATE CALC > 60 mL/min (>60); GLUCOSE,RANDOM 110 mg/dL (70-110); POTASSIUM 3.7 mmol/L (3.5-5.1); SODIUM SERUM 142 mmol/L (136-145); UREA NITROGEN, BLOOD 11 mg/dL (7-18)
[2018-04-23 16:32] LABS: ALANINE AMINOTRANSFERASE 53 U/L (12-78); ALBUMIN 3.5 g/dL (3.4-5.0); ALKALINE PHOSPHATASE 84 U/L (46-116); ASPARTATE AMINOTRANSFERASE 24 U/L (15-37); BILIRUBIN,TOTAL 0.3 mg/dL (0.1-1.0); TOTAL PROTEIN, SERUM 7.2 g/dL (6.4-8.2)
[2018-04-23 17:08] VITALS: BP 107/69
== END 2018-04-23 17:36 | disposition home or self-care (01) ==
LOC: EMS 13:37
DX: F91.8 Other conduct disorders (principal); F31.9 Bipolar disorder, unspecified; F20.9 Schizophrenia, unspecified; E11.9 Type 2 diabetes mellitus without complications; F17.210 Nicotine dependence, cigarettes, uncomplicated; Z91.013 Allergy to seafood; Z88.8 Allergy status to other drugs, medicaments and biological substances; Z91.018 Allergy to other foods
CPT/HCPCS: 99284

== ENCOUNTER 2018-05-07 20:02 | Emergency (ER) | payer MEDICARE, OTHER ==
[~2018-05-07] VITALS: Ht 175.3 cm; Wt 90.9 kg
[~2018-05-07 20:02] MED LIST changes: +BACL5TAB PO; +FLUD25I IM; +GABA-531 PO; +METH4TAB16 PO; -OLAN5TAB40 PO; -TRAZ-147 PO; +TRAZ150 PO
[2018-05-07] MEDS ORDERED: FLUPH2.5I IM (22:59)
[2018-05-07 23:03] LABS: AMPHET/METH SCREEN,URINE NEGATIVE (NEGATIVE); BARBITURATE SCREEN, URINE NEGATIVE (NEGATIVE); BENZODIAZEPINES SCREEN,URINE NEGATIVE (NEGATIVE); CANNABINOID SCREEN,URINE NEGATIVE (NEGATIVE); COCAINE SCREEN,URINE NEGATIVE (NEGATIVE); METHADONE SCREEN, URINE NEGATIVE (NEGATIVE); OPIATE SCREEN,URINE NEGATIVE (NEGATIVE); PHENCYCLIDINE SCREEN,URINE NEGATIVE (NEGATIVE)
[2018-05-07 23:08] LABS: BASOPHILS % (AUTO) 0.8 % (0.0-2.0); HEMATOCRIT 46.2 % (41-53); LYMPHOCYTES # (AUTO) 3.3 K/uL (1.0-4.8); LYMPHOCYTES % (AUTO) 40.5 % (22.0-44.0); MEAN CORPUSCULAR HEMOGLOBIN 32.4 pg (26.0-34.0); MEAN CORPUSCULAR HGB CONC 34.5 G/dL (31.0-37.0); MEAN CORPUSCULAR VOLUME 94 fL (80-100); MONOCYTES # (AUTO) 0.6 K/uL (0.1-1.0); MONOCYTES % (AUTO) 7.6 % (2.0-9.0); NEUTROPHILS % (AUTO) 49.1 % (40.0-70.0); PLATELET COUNT (AUTO) 192 K/uL (150-450); RED BLOOD CELL COUNT(AUTO) 4.92 MIL/uL (4.50-5.90); RED CELL DISTRIBUTION WIDTH 14.2 % (11.5-14.5)
[2018-05-07 23:16] LABS: ANION GAP 12 mmol/L (8-16); CALCIUM, TOTAL 9.3 mg/dL (8.8-10.5); CARBON DIOXIDE 26 mmol/L (22-29); CHLORIDE 102 mmol/L (98-107); CREATININE 0.93 mg/dL (0.60-1.30); GLOMERULAR FILTR. RATE CALC > 60 mL/min (>60); GLUCOSE,RANDOM 95 mg/dL (70-110); POTASSIUM 4.4 mmol/L (3.5-5.1); SODIUM SERUM 140 mmol/L (136-145); UREA NITROGEN, BLOOD 15 mg/dL (7-18)
[2018-05-07 23:22] LABS: ALANINE AMINOTRANSFERASE 59 U/L (12-78); ALBUMIN 3.7 g/dL (3.4-5.0); ALKALINE PHOSPHATASE 89 U/L (46-116); ASPARTATE AMINOTRANSFERASE 35 U/L (15-37); BILIRUBIN,TOTAL 0.4 mg/dL (0.1-1.0); TOTAL PROTEIN, SERUM 7.6 g/dL (6.4-8.2)
[2018-05-07 23:29] LABS: GLUCOSE,POINT OF CARE 88 MG/DL (70-110)
[2018-05-08] MEDS ORDERED: LORazepam 2 MG TABLET PO ONE (00:15)
[2018-05-08 00:54] VITALS: BP 105/67
== END 2018-05-08 01:24 | disposition home or self-care (01) ==
LOC: EMS 20:03
DX: F25.9 Schizoaffective disorder, unspecified (principal); F17.210 Nicotine dependence, cigarettes, uncomplicated; E11.9 Type 2 diabetes mellitus without complications; F41.9 Anxiety disorder, unspecified; F31.9 Bipolar disorder, unspecified; G47.00 Insomnia, unspecified; Z79.899 Other long term (current) drug therapy; Z88.8 Allergy status to other drugs, medicaments and biological substances; Z91.013 Allergy to seafood
CPT/HCPCS: 36415; 80053; 80307; 82962; 85025; 99284; G0480

== ENCOUNTER 2018-07-14 22:01 | Emergency (ER) | payer MEDICARE, OTHER ==
[~2018-07-14] VITALS: Ht 175.3 cm; Wt 90.9 kg
[~2018-07-14 22:01] MED LIST changes: -CHLO100T24 PO; +FLUPH2.5I IM; -HYDR50CA10 PO; -METH4TAB16 PO
[2018-07-14] MEDS ORDERED: FLUP5 PO (22:14)
[2018-07-14] MEDS ORDERED: DIAZ10 PO (22:14)
[2018-07-14] MEDS ORDERED: LITH600 PO (22:14)
[2018-07-14] MEDS ORDERED: SOLI5 PO (22:14)
[2018-07-14 22:31] LABS: APPEARANCE,URINE CLEAR (CLEAR); BILIRUBIN,URINE NEGATIVE (NEGATIVE); GLUCOSE, URINE (UA) NEGATIVE (NEGATIVE); KETONES,URINE TRACE mg/dL (NEGATIVE); LEUKOCYTE ESTERASE ,URINE NEGATIVE (NEGATIVE); NITRATE,URINE NEGATIVE (NEGATIVE); OCCULT BLOOD,URINE NEGATIVE (NEGATIVE); PH,URINE 5.5 (5.0-8.0); PROTEIN,URINE NEGATIVE (NEGATIVE); UROBILINOGEN,URINE 0.2 mg/dL (<=1.0)
[2018-07-14 22:36] LABS: BASOPHILS % (AUTO) 0.4 % (0.0-2.0); EOSINOPHILS % (AUTO) 1.5 % (1.0-6.0); HEMATOCRIT 41.2 % (41-53); HEMOGLOBIN 14.4 g/dL (13.5-17.5); LYMPHOCYTES # (AUTO) 3.6 K/uL (1.0-4.8); LYMPHOCYTES % (AUTO) 33.5 % (22.0-44.0); MEAN CORPUSCULAR HEMOGLOBIN 33.9 pg (26.0-34.0); MEAN CORPUSCULAR VOLUME 97 fL (80-100); MONOCYTES # (AUTO) 1.1 K/uL (0.1-1.0); NEUTROPHILS # (AUTO) 5.9 K/uL (1.8-7.7); NEUTROPHILS % (AUTO) 54.6 % (40.0-70.0); PLATELET COUNT (AUTO) 243 K/uL (150-450); RED BLOOD CELL COUNT(AUTO) 4.25 MIL/uL (4.50-5.90); RED CELL DISTRIBUTION WIDTH 14.2 % (11.5-14.5)
[2018-07-14 22:47] LABS: ANION GAP 10 mmol/L (8-16); CARBON DIOXIDE 27 mmol/L (22-29); CHLORIDE 104 mmol/L (98-107); CREATININE 1.02 mg/dL (0.60-1.30); GLOMERULAR FILTR. RATE CALC > 60 mL/min (>60); GLUCOSE,RANDOM 131 mg/dL (70-110); POTASSIUM 3.9 mmol/L (3.5-5.1); SODIUM SERUM 141 mmol/L (136-145); UREA NITROGEN, BLOOD 15 mg/dL (7-18)
[2018-07-14 22:52] LABS: AMPHET/METH SCREEN,URINE NEGATIVE (NEGATIVE); BARBITURATE SCREEN, URINE NEGATIVE (NEGATIVE); BENZODIAZEPINES SCREEN,URINE POSITIVE (NEGATIVE); CANNABINOID SCREEN,URINE NEGATIVE (NEGATIVE); COCAINE SCREEN,URINE NEGATIVE (NEGATIVE); METHADONE SCREEN, URINE NEGATIVE (NEGATIVE); OPIATE SCREEN,URINE NEGATIVE (NEGATIVE); PHENCYCLIDINE SCREEN,URINE NEGATIVE (NEGATIVE)
[2018-07-14 22:53] LABS: ALANINE AMINOTRANSFERASE 52 U/L (12-78); ALBUMIN 3.2 g/dL (3.4-5.0); ALKALINE PHOSPHATASE 82 U/L (46-116); ASPARTATE AMINOTRANSFERASE 28 U/L (15-37); BILIRUBIN,TOTAL 0.3 mg/dL (0.1-1.0); TOTAL PROTEIN, SERUM 7.2 g/dL (6.4-8.2)
[2018-07-14] MEDS ORDERED: LORazepam 2 MG TABLET PO ONE (23:00)
[2018-07-14 23:51] VITALS: BP 129/75
== END 2018-07-15 01:08 | disposition home or self-care (01) ==
LOC: EMS 22:03
DX: F25.9 Schizoaffective disorder, unspecified (principal); F91.9 Conduct disorder, unspecified; F31.9 Bipolar disorder, unspecified; F41.9 Anxiety disorder, unspecified; E11.9 Type 2 diabetes mellitus without complications; E78.00 Pure hypercholesterolemia, unspecified; F17.210 Nicotine dependence, cigarettes, uncomplicated; Z88.8 Allergy status to other drugs, medicaments and biological substances; Z91.018 Allergy to other foods; Z79.899 Other long term (current) drug therapy
CPT/HCPCS: 36415; 80053; 80307; 81003; 85025; 99284; 99406; G0480

== ENCOUNTER 2018-08-08 18:59 | Inpatient (IN) | payer MEDICARE, MEDICAID ==
[~2018-08-08] VITALS: Ht 175.3 cm; Wt 86.7 kg
[~2018-08-08 18:59] MED LIST changes: +DIAZ10 PO; -FE PR; +FLUP5 PO; -GABA-531 PO; +LITH600 PO; -LORA2TAB2 PO; -LORA4VIA19 IM; -OLAN10VI3 IM; -SIME120L PO; +SOLI5 PO; -TRAZ150 PO
[2018-08-08] MEDS ORDERED: GABA-529 PO (19:51)
[2018-08-08] MEDS ORDERED: SIME120L PO (19:51)
[2018-08-08] MEDS ORDERED: ACET-2247 PO (19:51)
[2018-08-08] MEDS ORDERED: CETI-290 PO (19:51)
[2018-08-08] MEDS ORDERED: TRAZ-220 PO (19:51)
[2018-08-08] MEDS ORDERED: OLAN10VI3 IM (19:51)
[2018-08-08] MEDS ORDERED: LITH300C3 PO (19:51)
[2018-08-08] MEDS ORDERED: DEXT15DR27 OU (19:51)
[2018-08-08 19:55] LABS: BASOPHILS % (AUTO) 0.5 % (0.0-2.0); EOSINOPHILS % (AUTO) 1.7 % (1.0-6.0); HEMATOCRIT 40.1 % (41-53); HEMOGLOBIN 13.9 g/dL (13.5-17.5); LYMPHOCYTES # (AUTO) 2.7 K/uL (1.0-4.8); LYMPHOCYTES % (AUTO) 32.3 % (22.0-44.0); MEAN CORPUSCULAR HEMOGLOBIN 33.9 pg (26.0-34.0); MEAN CORPUSCULAR HGB CONC 34.7 G/dL (31.0-37.0); MEAN CORPUSCULAR VOLUME 98 fL (80-100); MONOCYTES # (AUTO) 0.7 K/uL (0.1-1.0); MONOCYTES % (AUTO) 8.4 % (2.0-9.0); NEUTROPHILS # (AUTO) 4.8 K/uL (1.8-7.7); NEUTROPHILS % (AUTO) 57.1 % (40.0-70.0); PLATELET COUNT (AUTO) 223 K/uL (150-450); RED CELL DISTRIBUTION WIDTH 13.3 % (11.5-14.5)
[2018-08-08 19:58] LABS: AMPHET/METH SCREEN,URINE NEGATIVE (NEGATIVE); BARBITURATE SCREEN, URINE NEGATIVE (NEGATIVE); BENZODIAZEPINES SCREEN,URINE POSITIVE (NEGATIVE); CANNABINOID SCREEN,URINE NEGATIVE (NEGATIVE); COCAINE SCREEN,URINE NEGATIVE (NEGATIVE); METHADONE SCREEN, URINE NEGATIVE (NEGATIVE); OPIATE SCREEN,URINE NEGATIVE (NEGATIVE)
[2018-08-08 19:59] LABS: PHENCYCLIDINE SCREEN,URINE NEGATIVE (NEGATIVE)
[2018-08-08 20:09] LABS: LITHIUM 0.59 mmol/L (0.60-1.20)
[2018-08-08] MEDS ORDERED: LORazepam 2 MG TABLET PO ONE (20:15)
[2018-08-08 20:17] LABS: ALANINE AMINOTRANSFERASE 39 U/L (12-78); ALBUMIN 3.4 g/dL (3.4-5.0); ALKALINE PHOSPHATASE 79 U/L (46-116); ANION GAP 3 mmol/L (8-16); ASPARTATE AMINOTRANSFERASE 26 U/L (15-37); BILIRUBIN,TOTAL 0.3 mg/dL (0.1-1.0); CALCIUM, TOTAL 9.3 mg/dL (8.8-10.5); CARBON DIOXIDE 30 mmol/L (22-29); CHLORIDE 106 mmol/L (98-107); CREATININE 0.93 mg/dL (0.60-1.30); GLOMERULAR FILTR. RATE CALC > 60 mL/min (>60); GLUCOSE,RANDOM 87 mg/dL (70-110); POTASSIUM 4.1 mmol/L (3.5-5.1); SODIUM SERUM 139 mmol/L (136-145); TOTAL PROTEIN, SERUM 7.3 g/dL (6.4-8.2); VALPROIC ACID 77 mcg/mL (50-100)
[2018-08-08 20:26] LABS: UREA NITROGEN, BLOOD 13 mg/dL (7-18)
[2018-08-08] MEDS ORDERED: ZOLPIDEM TARTRATE 10 MG TABLET PO ONE ×2 (22:15→22:30)
[2018-08-08] MEDS ORDERED: DIVALPROEX SODIUM 500 MG DR TABLET PO ONE (22:30)
[2018-08-08] MEDS ORDERED: TraZODone HCL 50 MG TABLET PO ONE ×2 (22:30)
[2018-08-08] MEDS ORDERED: LITHIUM CARBONATE 300 MG CAPSULE PO ONE (22:30)
[2018-08-08] MEDS ORDERED: LITHIUM CARBONATE 300 MG ER TABLET PO ONE (22:30)
[2018-08-08] MEDS ORDERED: TRIHEXYPHENIDYL HCL 2 MG TABLET PO ONE (22:30)
[2018-08-08] MEDS ORDERED: ATORVASTATIN CALCIUM 10 MG TABLET PO ONE ×2 (22:30)
[2018-08-08] MEDS ORDERED: OLANZapine 5 MG TABLET PO ONE ×2 (22:30)
[2018-08-08] MEDS ORDERED: BACLOFEN 10 MG TABLET PO ONE (22:30)
[2018-08-09] MEDS ORDERED: LORazepam 1 MG TABLET PO ONE (08:45)
[2018-08-09] MEDS ORDERED: LORazepam 2 MG TABLET PO ONE (12:00)
[2018-08-09] MEDS ORDERED: OLANZapine 5 MG TABLET PO ONE (12:00)
[2018-08-09] MEDS ORDERED: DiphenhydrAMINE HCL 50 MG/ML VIAL IM ONE (13:15)
[2018-08-09] MEDS ORDERED: OLANZapine 5 MG RAPDIS TABLET PO PRN (14:45)
[2018-08-09] MEDS: LORazepam 2 MG TABLET PO PRN (17:50)
[2018-08-09 18:06] VITALS: BP 121/88
[2018-08-09] MEDS ORDERED: PETROLATUM,WHITE 71 GM JELLY TP PRN (18:15)
[2018-08-09] MEDS ORDERED: ACETAMINOPHEN 325 MG TABLET PO PRN (18:15)
[2018-08-09] MEDS ORDERED: MAG HYDROX/AL HYDROX/SIMETH ES 30 ML SUSPENSION UDCUP PO PRN (18:15)
[2018-08-09] MEDS ORDERED: MAGNESIUM HYDROXIDE SUSPENSION 30 ML UDCUP PO PRN (18:15)
[2018-08-09] MEDS ORDERED: LOPERAMIDE HCL 2 MG CAPSULE PO PRN (18:15)
[2018-08-09] MEDS ORDERED: GuaiFENesin/D-METHORPHAN [SUGAR-FREE] 200-20MG/10 ML SYRUP UDCUP PO PRN (18:15)
[2018-08-09] MEDS ORDERED: NICOTINE 14 MG/24 HOUR PATCH TD PRN (18:15)
[2018-08-09] MEDS ORDERED: CloNIDine HCL 0.1 MG TABLET PO PRN (18:15)
[2018-08-09] MEDS ORDERED: ONDANSETRON HCL 4 MG TABLET PO PRN (18:15)
[2018-08-09] MEDS ORDERED: DOCUSATE SODIUM 100 MG CAPSULE PO PRN (18:15)
[2018-08-09] MEDS ORDERED: ALBUTEROL SULFATE HFA 90 MCG/PUFF 8 GM INHALER IH PRN (18:15)
[2018-08-10 02:43] VITALS: BP 102/63
[2018-08-10 08:14] LABS: BASOPHILS % (AUTO) 0.4 % (0.0-2.0); HEMATOCRIT 44.2 % (41-53); HEMOGLOBIN 15.3 g/dL (13.5-17.5); LYMPHOCYTES # (AUTO) 2.3 K/uL (1.0-4.8); LYMPHOCYTES % (AUTO) 30.8 % (22.0-44.0); MEAN CORPUSCULAR HEMOGLOBIN 34.7 pg (26.0-34.0); MEAN CORPUSCULAR HGB CONC 34.7 G/dL (31.0-37.0); MEAN CORPUSCULAR VOLUME 100 fL (80-100); MONOCYTES # (AUTO) 0.8 K/uL (0.1-1.0); MONOCYTES % (AUTO) 10.8 % (2.0-9.0); NEUTROPHILS # (AUTO) 4.1 K/uL (1.8-7.7); PLATELET COUNT (AUTO) 235 K/uL (150-450); RED BLOOD CELL COUNT(AUTO) 4.41 MIL/uL (4.50-5.90); RED CELL DISTRIBUTION WIDTH 13.3 % (11.5-14.5)
[2018-08-10 08:23] LABS: HEMOGLOBIN A1C 5.2 % (4.5-6.2)
[2018-08-10 08:37] VITALS: BP 100/61
[2018-08-10 08:38] LABS: ALANINE AMINOTRANSFERASE 46 U/L (12-78); ALBUMIN 3.4 g/dL (3.4-5.0); ALKALINE PHOSPHATASE 81 U/L (46-116); ANION GAP 7 mmol/L (8-16); ASPARTATE AMINOTRANSFERASE 41 U/L (15-37); BILIRUBIN,TOTAL 0.4 mg/dL (0.1-1.0); CARBON DIOXIDE 29 mmol/L (22-29); CHLORIDE 104 mmol/L (98-107); CHOL/HDL RATIO 3.3 (4.2-7.3); CHOLESTEROL 146 mg/dL (131-200); CREATININE 0.99 mg/dL (0.60-1.30); GLOMERULAR FILTR. RATE CALC > 60 mL/min (>60); GLUCOSE,RANDOM 96 mg/dL (70-110); HDL CHOLESTEROL 44 mg/dL (40-60); LDL CHOL (CALC.) 72 mg/dL (0-130); POTASSIUM 4.2 mmol/L (3.5-5.1); SODIUM SERUM 140 mmol/L (136-145); THYROID STIMULATING HORMONE 2.15 uIU/mL (0.36-3.74); TOTAL PROTEIN, SERUM 7.3 g/dL (6.4-8.2); TRIGLYCERIDES 152 mg/dL (15-150); UREA NITROGEN, BLOOD 14 mg/dL (7-18)
[2018-08-10] MEDS: LORazepam 2 MG TABLET PO PRN (10:41)
[2018-08-10] MEDS ORDERED: LORazepam 2 MG TABLET PO PRN (12:15)
[2018-08-10] MEDS: FluPHENAZine HCL 5 MG TABLET PO SCH ×2 (12:59→16:46)
[2018-08-10 16:15] VITALS: BP 106/69
[2018-08-10 16:35] VITALS: BP 106/69
[2018-08-10 20:15] VITALS: BP 113/68
[2018-08-10] MEDS: SERTRALINE HCL 50 MG TABLET PO SCH (20:35)
[2018-08-10] MEDS: DIVALPROEX SODIUM 500 MG ER TABLET PO SCH (20:35)
[2018-08-10] MEDS: ATORVASTATIN CALCIUM 10 MG TABLET PO SCH (20:35)
[2018-08-10] MEDS: ZOLPIDEM TARTRATE 10 MG TABLET PO PRN (20:49)
[2018-08-10] MEDS ORDERED: DIVALPROEX SODIUM 500 MG ER TABLET PO SCH (21:00)
[2018-08-11] VITALS (7 sets, daily range): BP systolic 101–118; BP diastolic 60–72
[2018-08-11] MEDS ORDERED: LORazepam 2 MG TABLET PO PRN (07:00)
[2018-08-11] MEDS: LORazepam 2 MG TABLET PO SCH ×4 (09:33→20:30)
[2018-08-11] MEDS: CETIRIZINE HCL 10 MG TABLET PO SCH (09:33)
[2018-08-11] MEDS: FluPHENAZine HCL 5 MG TABLET PO SCH ×3 (09:33→16:35)
[2018-08-11] MEDS: SOLIFENACIN SUCCINATE 5 MG TABLET PO SCH (09:34)
[2018-08-11] MEDS ORDERED: TraMADol HCL 50 MG TABLET PO PRN (18:15)
[2018-08-11] MEDS: ATORVASTATIN CALCIUM 10 MG TABLET PO SCH (20:30)
[2018-08-11] MEDS: SERTRALINE HCL 50 MG TABLET PO SCH (20:30)
[2018-08-11] MEDS: DIVALPROEX SODIUM 500 MG ER TABLET PO SCH (20:31)
[2018-08-12 06:58] VITALS: BP 110/70
[2018-08-12 08:24] VITALS: BP 109/76
[2018-08-12] MEDS: FluPHENAZine HCL 5 MG TABLET PO SCH ×3 (09:30→16:35)
[2018-08-12] MEDS: LORazepam 2 MG TABLET PO SCH ×4 (09:30→20:29)
[2018-08-12] MEDS: CETIRIZINE HCL 10 MG TABLET PO SCH (12:35)
[2018-08-12] MEDS: SOLIFENACIN SUCCINATE 5 MG TABLET PO SCH (12:36)
[2018-08-12 16:00] VITALS: BP 107/69
[2018-08-12 16:01] VITALS: BP 107/69
[2018-08-12] MEDS: SERTRALINE HCL 50 MG TABLET PO SCH (20:28)
[2018-08-12] MEDS: ATORVASTATIN CALCIUM 10 MG TABLET PO SCH (20:28)
[2018-08-12] MEDS: DIVALPROEX SODIUM 500 MG ER TABLET PO SCH (20:28)
[2018-08-12] MEDS: ZOLPIDEM TARTRATE 10 MG TABLET PO PRN (20:57)
[2018-08-13 06:19] VITALS: BP 109/75
[2018-08-13 06:21] VITALS: BP 109/75
[2018-08-13] MEDS ORDERED: LORazepam 1 MG TABLET PO PRN (07:00)
[2018-08-13 08:11] VITALS: BP 105/66
[2018-08-13] MEDS: CETIRIZINE HCL 10 MG TABLET PO SCH (08:14)
[2018-08-13] MEDS: FluPHENAZine HCL 5 MG TABLET PO SCH ×3 (08:14→16:40)
[2018-08-13] MEDS: SOLIFENACIN SUCCINATE 5 MG TABLET PO SCH (08:15)
[2018-08-13] MEDS: LORazepam 1 MG TABLET PO SCH ×4 (08:15→20:28)
[2018-08-13 09:27] VITALS: BP 106/66
[2018-08-13 16:12] VITALS: BP 110/70
[2018-08-13 16:13] VITALS: BP 110/70
[2018-08-13] MEDS: DIVALPROEX SODIUM 500 MG ER TABLET PO SCH (20:28)
[2018-08-13] MEDS: ATORVASTATIN CALCIUM 10 MG TABLET PO SCH (20:28)
[2018-08-13] MEDS: SERTRALINE HCL 50 MG TABLET PO SCH (20:28)
[2018-08-13] MEDS: ZOLPIDEM TARTRATE 10 MG TABLET PO PRN (20:44)
[2018-08-14 06:59] VITALS: BP 120/81
[2018-08-14] MEDS ORDERED: LORazepam 1 MG TABLET PO PRN (07:00)
[2018-08-14] MEDS: CETIRIZINE HCL 10 MG TABLET PO SCH (08:18)
[2018-08-14] MEDS: FluPHENAZine HCL 5 MG TABLET PO SCH ×3 (08:18→16:27)
[2018-08-14] MEDS: SOLIFENACIN SUCCINATE 5 MG TABLET PO SCH (08:19)
[2018-08-14 08:22] VITALS: BP 109/66
[2018-08-14 16:02] VITALS: BP 111/69
[2018-08-14] MEDS: SERTRALINE HCL 50 MG TABLET PO SCH (20:13)
[2018-08-14] MEDS: DIVALPROEX SODIUM 500 MG ER TABLET PO SCH (20:13)
[2018-08-14] MEDS: ATORVASTATIN CALCIUM 10 MG TABLET PO SCH (20:13)
[2018-08-14] MEDS: ZOLPIDEM TARTRATE 10 MG TABLET PO PRN (21:05)
[2018-08-15 06:05] VITALS: BP 120/81
[2018-08-15 08:05] VITALS: BP 108/71
[2018-08-15] MEDS: FluPHENAZine HCL 5 MG TABLET PO SCH ×3 (08:19→16:29)
[2018-08-15] MEDS: CETIRIZINE HCL 10 MG TABLET PO SCH (08:19)
[2018-08-15] MEDS: SOLIFENACIN SUCCINATE 5 MG TABLET PO SCH (08:19)
[2018-08-15] MEDS: OMEPRAZOLE 20 MG CAPSULE PO SCH (08:19)
[2018-08-15 16:04] VITALS: BP 112/68
[2018-08-15] MEDS: SERTRALINE HCL 50 MG TABLET PO SCH (20:29)
[2018-08-15] MEDS: DIVALPROEX SODIUM 500 MG ER TABLET PO SCH (20:29)
[2018-08-15] MEDS: ATORVASTATIN CALCIUM 10 MG TABLET PO SCH (20:34)
[2018-08-15] MEDS: ZOLPIDEM TARTRATE 10 MG TABLET PO PRN (20:53)
[2018-08-16 01:13] VITALS: BP 105/65
[2018-08-16 08:06] VITALS: BP 100/65
[2018-08-16] MEDS: OMEPRAZOLE 20 MG CAPSULE PO SCH (08:42)
[2018-08-16] MEDS: FluPHENAZine HCL 5 MG TABLET PO SCH ×3 (08:42→17:15)
[2018-08-16] MEDS: CETIRIZINE HCL 10 MG TABLET PO SCH (08:42)
[2018-08-16] MEDS: SOLIFENACIN SUCCINATE 5 MG TABLET PO SCH (08:42)
[2018-08-16] MEDS ORDERED: FluPHENAZine DECANOATE 25 MG/ML IM SCH (09:00)
[2018-08-16 10:08] VITALS: BP 114/77
[2018-08-16] MEDS: LORazepam 2 MG TABLET PO PRN (10:08)
[2018-08-16 16:10] VITALS: BP 107/63
[2018-08-16 17:16] VITALS: BP 103/70
[2018-08-16] MEDS: ATORVASTATIN CALCIUM 10 MG TABLET PO SCH (20:30)
[2018-08-16] MEDS: SERTRALINE HCL 50 MG TABLET PO SCH (20:30)
[2018-08-16] MEDS: DIVALPROEX SODIUM 500 MG ER TABLET PO SCH (20:30)
[2018-08-16] MEDS: ZOLPIDEM TARTRATE 10 MG TABLET PO PRN (21:00)
[2018-08-17 06:50] VITALS: BP 109/73
[2018-08-17 08:22] VITALS: BP 106/64
[2018-08-17] MEDS: SOLIFENACIN SUCCINATE 5 MG TABLET PO SCH (08:32)
[2018-08-17] MEDS: FluPHENAZine HCL 5 MG TABLET PO SCH ×3 (08:32→16:06)
[2018-08-17] MEDS: CETIRIZINE HCL 10 MG TABLET PO SCH (08:32)
[2018-08-17] MEDS: OMEPRAZOLE 20 MG CAPSULE PO SCH (08:32)
[2018-08-17 16:05] VITALS: BP 110/73
[2018-08-17] MEDS: DIVALPROEX SODIUM 500 MG ER TABLET PO SCH (20:03)
[2018-08-17] MEDS: ATORVASTATIN CALCIUM 10 MG TABLET PO SCH (20:03)
[2018-08-17] MEDS: SERTRALINE HCL 50 MG TABLET PO SCH (20:03)
[2018-08-17] MEDS: ZOLPIDEM TARTRATE 10 MG TABLET PO PRN (21:04)
[2018-08-18 06:08] VITALS: BP 120/86
[2018-08-18] MEDS: FluPHENAZine HCL 5 MG TABLET PO SCH ×3 (08:02→16:14)
[2018-08-18] MEDS: SOLIFENACIN SUCCINATE 5 MG TABLET PO SCH (08:02)
[2018-08-18] MEDS: CETIRIZINE HCL 10 MG TABLET PO SCH (08:02)
[2018-08-18] MEDS: OMEPRAZOLE 20 MG CAPSULE PO SCH (08:03)
[2018-08-18 08:18] VITALS: BP 107/64
[2018-08-18 16:15] VITALS: BP 107/63
[2018-08-18] MEDS: SERTRALINE HCL 50 MG TABLET PO SCH (20:03)
[2018-08-18] MEDS: DIVALPROEX SODIUM 500 MG ER TABLET PO SCH (20:03)
[2018-08-18] MEDS: ATORVASTATIN CALCIUM 10 MG TABLET PO SCH (20:03)
[2018-08-18] MEDS: ZOLPIDEM TARTRATE 10 MG TABLET PO PRN (20:57)
[2018-08-19 06:08] VITALS: BP 110/68
[2018-08-19] MEDS: SOLIFENACIN SUCCINATE 5 MG TABLET PO SCH (08:12)
[2018-08-19] MEDS: OMEPRAZOLE 20 MG CAPSULE PO SCH (08:12)
[2018-08-19] MEDS: FluPHENAZine HCL 5 MG TABLET PO SCH ×3 (08:12→16:39)
[2018-08-19 08:13] VITALS: BP 115/63
[2018-08-19] MEDS: CETIRIZINE HCL 10 MG TABLET PO SCH (08:13)
[2018-08-19] MEDS: LORazepam 2 MG TABLET PO PRN ×3 (11:53→21:46)
[2018-08-19 16:07] VITALS: BP 110/68
[2018-08-19] MEDS: ATORVASTATIN CALCIUM 10 MG TABLET PO SCH (20:28)
[2018-08-19] MEDS: SERTRALINE HCL 50 MG TABLET PO SCH (20:28)
[2018-08-19] MEDS: DIVALPROEX SODIUM 500 MG ER TABLET PO SCH (20:29)
[2018-08-19] MEDS: ZOLPIDEM TARTRATE 10 MG TABLET PO PRN (20:59)
[2018-08-20 06:12] VITALS: BP 112/65
[2018-08-20 08:10] VITALS: BP 102/67
[2018-08-20] MEDS: SOLIFENACIN SUCCINATE 5 MG TABLET PO SCH (08:51)
[2018-08-20] MEDS: CETIRIZINE HCL 10 MG TABLET PO SCH (08:51)
[2018-08-20] MEDS: OMEPRAZOLE 20 MG CAPSULE PO SCH (08:51)
[2018-08-20] MEDS: FluPHENAZine HCL 5 MG TABLET PO SCH ×3 (08:51→16:34)
[2018-08-20] MEDS ORDERED: TUBERCULIN, PURIFIED PROTEIN DERIVATIVE 5 TU/0.1 ML SYG ID ONE (09:00)
[2018-08-20 16:12] VITALS: BP 139/75
[2018-08-20] MEDS: SERTRALINE HCL 50 MG TABLET PO SCH (20:31)
[2018-08-20] MEDS: ATORVASTATIN CALCIUM 10 MG TABLET PO SCH (20:31)
[2018-08-20] MEDS: DIVALPROEX SODIUM 500 MG ER TABLET PO SCH (20:31)
[2018-08-20] MEDS: ZOLPIDEM TARTRATE 10 MG TABLET PO PRN (21:26)
[2018-08-21 01:27] VITALS: BP 104/62
[2018-08-21 08:14] VITALS: BP 112/69
[2018-08-21] MEDS: CETIRIZINE HCL 10 MG TABLET PO SCH (08:22)
[2018-08-21] MEDS: SOLIFENACIN SUCCINATE 5 MG TABLET PO SCH (08:22)
[2018-08-21] MEDS: FluPHENAZine HCL 5 MG TABLET PO SCH ×3 (08:22→16:49)
[2018-08-21] MEDS: OMEPRAZOLE 20 MG CAPSULE PO SCH (08:22)
[2018-08-21] MEDS: LORazepam 2 MG TABLET PO PRN (14:56)
[2018-08-21] MEDS ORDERED: LORazepam 2 MG/ML VIAL IM ONE (17:15)
[2018-08-21] MEDS ORDERED: HALOPERIDOL LACTATE 5 MG/ML VIAL IM ONE (17:15)
[2018-08-21] MEDS ORDERED: DiphenhydrAMINE HCL 50 MG/ML VIAL IM ONE (17:15)
[2018-08-21 17:28] VITALS: BP 120/66
[2018-08-21] MEDS: SERTRALINE HCL 50 MG TABLET PO SCH (20:37)
[2018-08-21] MEDS: ATORVASTATIN CALCIUM 10 MG TABLET PO SCH (20:37)
[2018-08-21] MEDS: DIVALPROEX SODIUM 500 MG ER TABLET PO SCH (20:37)
[2018-08-21] MEDS: ZOLPIDEM TARTRATE 10 MG TABLET PO PRN (21:16)
[2018-08-22 01:19] VITALS: BP 108/74
[2018-08-22 08:15] VITALS: BP 105/62
[2018-08-22] MEDS: CETIRIZINE HCL 10 MG TABLET PO SCH (08:50)
[2018-08-22] MEDS: OMEPRAZOLE 20 MG CAPSULE PO SCH (08:50)
[2018-08-22] MEDS: SOLIFENACIN SUCCINATE 5 MG TABLET PO SCH (08:51)
[2018-08-22] MEDS: FluPHENAZine HCL 5 MG TABLET PO SCH ×3 (08:51→16:16)
[2018-08-22 16:10] VITALS: BP 108/64
[2018-08-22] MEDS: LORazepam 2 MG TABLET PO PRN (18:08)
[2018-08-22] MEDS: DIVALPROEX SODIUM 500 MG ER TABLET PO SCH (20:05)
[2018-08-22] MEDS: SERTRALINE HCL 50 MG TABLET PO SCH (20:05)
[2018-08-22] MEDS: ATORVASTATIN CALCIUM 10 MG TABLET PO SCH (20:06)
[2018-08-22] MEDS: ZOLPIDEM TARTRATE 10 MG TABLET PO PRN (21:00)
[2018-08-23 02:46] VITALS: BP 111/65
[2018-08-23 08:32] VITALS: BP 111/69
[2018-08-23] MEDS: CETIRIZINE HCL 10 MG TABLET PO SCH (08:33)
[2018-08-23] MEDS: OMEPRAZOLE 20 MG CAPSULE PO SCH (08:33)
[2018-08-23] MEDS: SOLIFENACIN SUCCINATE 5 MG TABLET PO SCH (08:33)
[2018-08-23] MEDS: FluPHENAZine HCL 5 MG TABLET PO SCH ×3 (08:33→16:50)
[2018-08-23] MEDS: LORazepam 2 MG TABLET PO PRN ×2 (13:40→21:17)
[2018-08-23 16:07] VITALS: BP 108/70
[2018-08-23] MEDS: ATORVASTATIN CALCIUM 10 MG TABLET PO SCH (20:19)
[2018-08-23] MEDS: SERTRALINE HCL 50 MG TABLET PO SCH (20:19)
[2018-08-23] MEDS: DIVALPROEX SODIUM 500 MG ER TABLET PO SCH (20:19)
[2018-08-23] MEDS: ZOLPIDEM TARTRATE 10 MG TABLET PO PRN (20:29)
[2018-08-24 04:28] VITALS: BP 108/65
[2018-08-24] MEDS: LORazepam 2 MG TABLET PO PRN (04:30)
[2018-08-24] MEDS: CETIRIZINE HCL 10 MG TABLET PO SCH (08:57)
[2018-08-24] MEDS: OMEPRAZOLE 20 MG CAPSULE PO SCH (08:57)
[2018-08-24] MEDS: FluPHENAZine HCL 5 MG TABLET PO SCH (08:57)
[2018-08-24] MEDS: SOLIFENACIN SUCCINATE 5 MG TABLET PO SCH (08:57)
[2018-08-24 09:21] VITALS: BP 108/82
[2018-08-24] MEDS ORDERED: LORazepam 2 MG/ML VIAL ONE (11:27)
[2018-08-24] MEDS ORDERED: DiphenhydrAMINE HCL 50 MG/ML VIAL ONE (11:27)
[2018-08-24] MEDS ORDERED: HALOPERIDOL LACTATE 5 MG/ML VIAL ONE (11:27)
[2018-08-24] MEDS ORDERED: HALOPERIDOL LACTATE 5 MG/ML VIAL IM ONE ×2 (11:45→12:15)
[2018-08-24] MEDS ORDERED: LORazepam 2 MG/ML VIAL IM ONE ×2 (11:45→12:15)
[2018-08-24] MEDS ORDERED: DiphenhydrAMINE HCL 50 MG/ML VIAL IM ONE ×2 (11:45→12:15)
[2018-08-24] MEDS: FluPHENAZine HCL 10 MG TABLET PO SCH ×2 (12:46→16:57)
[2018-08-24 13:52] VITALS: BP 132/79
[2018-08-24 16:08] VITALS: BP 102/64
[2018-08-24] MEDS: DIVALPROEX SODIUM 500 MG ER TABLET PO SCH (20:36)
[2018-08-24] MEDS: SERTRALINE HCL 50 MG TABLET PO SCH (20:37)
[2018-08-24] MEDS: ATORVASTATIN CALCIUM 10 MG TABLET PO SCH (20:37)
[2018-08-25 06:12] VITALS: BP 100/62
[2018-08-25 08:06] VITALS: BP 107/66
[2018-08-25] MEDS: CETIRIZINE HCL 10 MG TABLET PO SCH (08:32)
[2018-08-25] MEDS: OMEPRAZOLE 20 MG CAPSULE PO SCH (08:32)
[2018-08-25] MEDS: FluPHENAZine HCL 10 MG TABLET PO SCH ×3 (08:32→16:31)
[2018-08-25] MEDS: SOLIFENACIN SUCCINATE 5 MG TABLET PO SCH (08:32)
[2018-08-25 16:04] VITALS: BP 113/68
[2018-08-25] MEDS: SERTRALINE HCL 50 MG TABLET PO SCH (20:08)
[2018-08-25] MEDS: ATORVASTATIN CALCIUM 10 MG TABLET PO SCH (20:08)
[2018-08-25] MEDS: DIVALPROEX SODIUM 500 MG ER TABLET PO SCH (20:08)
[2018-08-25] MEDS: ZOLPIDEM TARTRATE 10 MG TABLET PO PRN (21:01)
[2018-08-26 00:01] VITALS: BP 128/71
[2018-08-26] MEDS: SOLIFENACIN SUCCINATE 5 MG TABLET PO SCH (08:27)
[2018-08-26] MEDS: CETIRIZINE HCL 10 MG TABLET PO SCH (08:27)
[2018-08-26] MEDS: FluPHENAZine HCL 10 MG TABLET PO SCH ×3 (08:27→16:38)
[2018-08-26] MEDS: OMEPRAZOLE 20 MG CAPSULE PO SCH (08:28)
[2018-08-26 08:47] VITALS: BP 109/68
[2018-08-26] MEDS: LORazepam 2 MG TABLET PO PRN ×2 (13:16→23:31)
[2018-08-26 16:35] VITALS: BP 120/64
[2018-08-26] MEDS: SERTRALINE HCL 50 MG TABLET PO SCH (20:05)
[2018-08-26] MEDS: DIVALPROEX SODIUM 500 MG ER TABLET PO SCH (20:05)
[2018-08-26] MEDS: ATORVASTATIN CALCIUM 10 MG TABLET PO SCH (20:05)
[2018-08-26] MEDS: ZOLPIDEM TARTRATE 10 MG TABLET PO PRN (21:26)
[2018-08-27 01:44] VITALS: BP 108/72
[2018-08-27 08:25] VITALS: BP 110/69
[2018-08-27] MEDS: OMEPRAZOLE 20 MG CAPSULE PO SCH (08:26)
[2018-08-27] MEDS: CETIRIZINE HCL 10 MG TABLET PO SCH (08:26)
[2018-08-27] MEDS: FluPHENAZine HCL 10 MG TABLET PO SCH ×3 (08:26→16:46)
[2018-08-27] MEDS: SOLIFENACIN SUCCINATE 5 MG TABLET PO SCH (08:26)
[2018-08-27 16:08] VITALS: BP 112/66
[2018-08-27] MEDS: LORazepam 2 MG TABLET PO PRN ×2 (16:46→20:46)
[2018-08-27] MEDS: ZOLPIDEM TARTRATE 10 MG TABLET PO PRN (20:14)
[2018-08-27] MEDS: SERTRALINE HCL 50 MG TABLET PO SCH (20:14)
[2018-08-27] MEDS: DIVALPROEX SODIUM 500 MG ER TABLET PO SCH (20:14)
[2018-08-27] MEDS: ATORVASTATIN CALCIUM 10 MG TABLET PO SCH (20:15)
[2018-08-28 04:52] VITALS: BP 120/81
[2018-08-28 08:11] VITALS: BP 104/60
[2018-08-28] MEDS: SOLIFENACIN SUCCINATE 5 MG TABLET PO SCH (08:33)
[2018-08-28] MEDS: OMEPRAZOLE 20 MG CAPSULE PO SCH (08:33)
[2018-08-28] MEDS: FluPHENAZine HCL 10 MG TABLET PO SCH ×3 (08:33→16:58)
[2018-08-28] MEDS: CETIRIZINE HCL 10 MG TABLET PO SCH (08:33)
[2018-08-28 16:30] VITALS: BP 100/69
[2018-08-28] MEDS: SERTRALINE HCL 50 MG TABLET PO SCH (20:16)
[2018-08-28] MEDS: DIVALPROEX SODIUM 500 MG ER TABLET PO SCH (20:16)
[2018-08-28] MEDS: ATORVASTATIN CALCIUM 10 MG TABLET PO SCH (20:16)
[2018-08-28] MEDS: ZOLPIDEM TARTRATE 10 MG TABLET PO PRN (21:05)
[2018-08-29 05:28] VITALS: BP 110/70
[2018-08-29 08:33] VITALS: BP 108/69
[2018-08-29] MEDS: FluPHENAZine HCL 10 MG TABLET PO SCH ×3 (08:34→16:41)
[2018-08-29] MEDS: OMEPRAZOLE 20 MG CAPSULE PO SCH (08:34)
[2018-08-29] MEDS: CETIRIZINE HCL 10 MG TABLET PO SCH (08:34)
[2018-08-29] MEDS: SOLIFENACIN SUCCINATE 5 MG TABLET PO SCH (08:34)
[2018-08-29] MEDS: LORazepam 2 MG TABLET PO PRN (11:48)
[2018-08-29 16:10] VITALS: BP 116/60
[2018-08-29] MEDS: DIVALPROEX SODIUM 500 MG ER TABLET PO SCH (20:34)
[2018-08-29] MEDS: ATORVASTATIN CALCIUM 10 MG TABLET PO SCH (20:34)
[2018-08-29] MEDS: SERTRALINE HCL 50 MG TABLET PO SCH (20:34)
[2018-08-29] MEDS: ZOLPIDEM TARTRATE 10 MG TABLET PO PRN (21:06)
[2018-08-30 04:33] VITALS: BP 110/68
[2018-08-30 08:14] VITALS: BP 104/60
[2018-08-30] MEDS: OMEPRAZOLE 20 MG CAPSULE PO SCH (08:52)
[2018-08-30] MEDS: FluPHENAZine HCL 10 MG TABLET PO SCH ×3 (08:52→16:33)
[2018-08-30] MEDS: SOLIFENACIN SUCCINATE 5 MG TABLET PO SCH (08:52)
[2018-08-30] MEDS: CETIRIZINE HCL 10 MG TABLET PO SCH (08:53)
[2018-08-30] MEDS: LORazepam 2 MG TABLET PO PRN (15:44)
[2018-08-30 16:12] VITALS: BP 107/70
[2018-08-30] MEDS: DIVALPROEX SODIUM 500 MG ER TABLET PO SCH (20:30)
[2018-08-30] MEDS: ATORVASTATIN CALCIUM 10 MG TABLET PO SCH (20:30)
[2018-08-30] MEDS: SERTRALINE HCL 50 MG TABLET PO SCH (20:30)
[2018-08-30] MEDS: ZOLPIDEM TARTRATE 10 MG TABLET PO PRN (20:57)
[2018-08-31 06:25] VITALS: BP 103/62
[2018-08-31] MEDS: OMEPRAZOLE 20 MG CAPSULE PO SCH (08:11)
[2018-08-31] MEDS: SOLIFENACIN SUCCINATE 5 MG TABLET PO SCH (08:11)
[2018-08-31] MEDS: CETIRIZINE HCL 10 MG TABLET PO SCH (08:11)
[2018-08-31] MEDS: FluPHENAZine HCL 10 MG TABLET PO SCH ×3 (08:11→16:44)
[2018-08-31 08:20] VITALS: BP 109/65
[2018-08-31] MEDS: LORazepam 2 MG TABLET PO PRN ×2 (15:25→23:43)
[2018-08-31 16:05] VITALS: BP 118/62
[2018-08-31] MEDS: DIVALPROEX SODIUM 500 MG ER TABLET PO SCH (20:18)
[2018-08-31] MEDS: SERTRALINE HCL 50 MG TABLET PO SCH (20:18)
[2018-08-31] MEDS: ATORVASTATIN CALCIUM 10 MG TABLET PO SCH (20:18)
[2018-08-31] MEDS: ZOLPIDEM TARTRATE 10 MG TABLET PO PRN (21:10)
[2018-09-01] VITALS: BP 108/68
[2018-09-01 08:06] VITALS: BP 110/66
[2018-09-01] MEDS: OMEPRAZOLE 20 MG CAPSULE PO SCH (08:13)
[2018-09-01] MEDS: FluPHENAZine HCL 10 MG TABLET PO SCH ×3 (08:13→16:35)
[2018-09-01] MEDS: CETIRIZINE HCL 10 MG TABLET PO SCH (08:13)
[2018-09-01] MEDS: SOLIFENACIN SUCCINATE 5 MG TABLET PO SCH (08:13)
[2018-09-01 16:06] VITALS: BP 105/64
[2018-09-01] MEDS: SERTRALINE HCL 50 MG TABLET PO SCH (20:05)
[2018-09-01] MEDS: ATORVASTATIN CALCIUM 10 MG TABLET PO SCH (20:05)
[2018-09-01] MEDS: DIVALPROEX SODIUM 500 MG ER TABLET PO SCH (20:05)
[2018-09-01] MEDS: ZOLPIDEM TARTRATE 10 MG TABLET PO PRN (20:49)
[2018-09-02 06:26] VITALS: BP 110/64
[2018-09-02] MEDS: SOLIFENACIN SUCCINATE 5 MG TABLET PO SCH (08:47)
[2018-09-02] MEDS: CETIRIZINE HCL 10 MG TABLET PO SCH (08:48)
[2018-09-02] MEDS: FluPHENAZine HCL 10 MG TABLET PO SCH ×3 (08:48→16:37)
[2018-09-02] MEDS: OMEPRAZOLE 20 MG CAPSULE PO SCH (08:48)
[2018-09-02 08:58] VITALS: BP 127/72
[2018-09-02] MEDS: LORazepam 2 MG TABLET PO PRN (10:17)
[2018-09-02 16:05] VITALS: BP 139/79
[2018-09-02] MEDS: ATORVASTATIN CALCIUM 10 MG TABLET PO SCH (20:35)
[2018-09-02] MEDS: SERTRALINE HCL 50 MG TABLET PO SCH (20:35)
[2018-09-02] MEDS: DIVALPROEX SODIUM 500 MG ER TABLET PO SCH (20:36)
[2018-09-02] MEDS: ZOLPIDEM TARTRATE 10 MG TABLET PO PRN (20:42)
[2018-09-03 04:00] VITALS: BP 128/86
[2018-09-03 08:28] VITALS: BP 104/61
[2018-09-03] MEDS: OMEPRAZOLE 20 MG CAPSULE PO SCH (08:29)
[2018-09-03] MEDS: FluPHENAZine HCL 10 MG TABLET PO SCH ×3 (08:29→16:30)
[2018-09-03] MEDS: SOLIFENACIN SUCCINATE 5 MG TABLET PO SCH (08:29)
[2018-09-03] MEDS: CETIRIZINE HCL 10 MG TABLET PO SCH (08:29)
[2018-09-03] MEDS: LORazepam 2 MG TABLET PO PRN ×2 (09:52→15:54)
[2018-09-03] MEDS ORDERED: OMEP20 PO (11:34)
[2018-09-03] MEDS ORDERED: SERT50TA12 PO (11:34)
[2018-09-03] MEDS ORDERED: FLUP5 PO (11:34)
[2018-09-03] MEDS ORDERED: DIVA500T52 PO (13:06)
[2018-09-03 16:04] VITALS: BP 118/76
== END 2018-09-03 17:53 | disposition home or self-care (01) | DRG 885 ==
LOC: EMS 19:00 → B2X 08-09 15:36
PROVIDERS: ADMIT Psychiatry & Neurology Psychiatry; ATTEND Psychiatry & Neurology Psychiatry
DX: F25.0 Schizoaffective disorder, bipolar type (principal); F19.10 Other psychoactive substance abuse, uncomplicated; G40.909 Epilepsy, unspecified, not intractable, without status epilepticus; G89.29 Other chronic pain; I10 Essential (primary) hypertension; J30.9 Allergic rhinitis, unspecified; K21.9 Gastro-esophageal reflux disease without esophagitis; K59.09 Other constipation; N43.3 Hydrocele, unspecified; R32 Unspecified urinary incontinence; Z59.0 Homelessness; G47.00 Insomnia, unspecified; F10.10 Alcohol abuse, uncomplicated; E78.5 Hyperlipidemia, unspecified; E78.00 Pure hypercholesterolemia, unspecified; E11.9 Type 2 diabetes mellitus without complications; M54.9 Dorsalgia, unspecified; F17.210 Nicotine dependence, cigarettes, uncomplicated; Z71.6 Tobacco abuse counseling; Z79.899 Other long term (current) drug therapy; Z91.013 Allergy to seafood; Z88.8 Allergy status to other drugs, medicaments and biological substances; Z91.018 Allergy to other foods
CPT/HCPCS: 83036; 84443; 87081; 96372; G0480; J1200; J1630; J2060; J2680

== ENCOUNTER → 2018-10-10 | Outpatient (CLI) | payer MEDICARE, OTHER ==
[~2018-10-10] MED LIST changes: -BACL5TAB PO; -BISA10S PR; +CETI-290 PO; -DIAZ10 PO; -FLUPH2.5I IM; -IBUP-2071 PO; -LITH600 PO; -MOM30 PO; -OLAN10TA3 PO; +OMEP20 PO; +SERT50TA12 PO; -TRIH2TAB3 PO; -ZOLP10TA7 PO
[2018-10-10 16:55] LABS: LITHIUM 0.36 mmol/L (0.60-1.20)
== END | disposition home or self-care (01) ==
LOC: LABMN 10:30
PROVIDERS: ATTEND Psychiatry & Neurology Psychiatry
DX: F25.0 Schizoaffective disorder, bipolar type (principal)

== ENCOUNTER 2018-12-05 14:07 | Emergency (ER) | payer MEDICARE, OTHER ==
[~2018-12-05] VITALS: Ht 177.8 cm; Wt 86.8 kg
[~2018-12-05 14:07] MED LIST changes: +CETI-170 PO; -CETI-290 PO
[2018-12-05] MEDS ORDERED: TRAZ150 PO (15:06)
[2018-12-05] MEDS ORDERED: CLIN150C9 PO (15:06)
[2018-12-05] MEDS ORDERED: BENZ1TAB10 PO (15:06)
[2018-12-05] MEDS ORDERED: MIRT15 PO (15:06)
[2018-12-05] MEDS ORDERED: QUET100T PO (15:06)
[2018-12-05 16:34] VITALS: BP 122/89
== END 2018-12-05 16:53 | disposition home or self-care (01) ==
LOC: EMS 14:08
DX: F41.9 Anxiety disorder, unspecified (principal); F25.9 Schizoaffective disorder, unspecified; R00.2 Palpitations; F17.210 Nicotine dependence, cigarettes, uncomplicated; F31.9 Bipolar disorder, unspecified; E11.9 Type 2 diabetes mellitus without complications; E78.00 Pure hypercholesterolemia, unspecified; Z88.6 Allergy status to analgesic agent; Z91.013 Allergy to seafood; Z88.8 Allergy status to other drugs, medicaments and biological substances; Z91.018 Allergy to other foods
CPT/HCPCS: 99406

== ENCOUNTER 2018-12-08 13:52 | Emergency (ER) | payer MEDICARE, OTHER ==
[~2018-12-08 13:52] MED LIST changes: +BENZ1TAB10 PO; +CLIN150C9 PO; +MIRT15 PO; +QUET100T PO; +TRAZ150 PO
== END 2018-12-08 14:39 | disposition left against medical advice (07) ==
LOC: EMS 13:53
DX: R10.31 Right lower quadrant pain (principal); R10.32 Left lower quadrant pain; F41.9 Anxiety disorder, unspecified; F31.9 Bipolar disorder, unspecified; E11.9 Type 2 diabetes mellitus without complications; E78.00 Pure hypercholesterolemia, unspecified; F20.9 Schizophrenia, unspecified; F17.210 Nicotine dependence, cigarettes, uncomplicated; Z88.6 Allergy status to analgesic agent; Z91.013 Allergy to seafood; Z91.018 Allergy to other foods

== ENCOUNTER 2019-05-06 17:57 | Emergency (ER) | payer MEDICARE, OTHER ==
[~2019-05-06] VITALS: Ht 177.8 cm; Wt 90.9 kg
[~2019-05-06 17:57] MED LIST changes: -ATOR10TA84 PO; -CETI-170 PO; -FLUD25I IM; -FLUP5 PO; -SOLI5 PO
[2019-05-06] MEDS ORDERED: GABA-529 PO (18:09)
[2019-05-06] MEDS ORDERED: [UNRECOGNIZED DRUG - CODE] IV (18:09)
[2019-05-06] MEDS ORDERED: BUSP5TAB20 PO (18:09)
[2019-05-06 18:19] LABS: GLUCOSE,POINT OF CARE 107 MG/DL (70-110)
[2019-05-06] MEDS ORDERED: SERT100T12 PO (18:59)
[2019-05-06] MEDS ORDERED: GABA-531 PO (18:59)
[2019-05-06] MEDS ORDERED: PROP10TA73 PO (18:59)
[2019-05-06 19:00] LABS: APPEARANCE,URINE CLEAR (CLEAR); BILIRUBIN,URINE NEGATIVE (NEGATIVE); GLUCOSE, URINE (UA) NEGATIVE (NEGATIVE); KETONES,URINE NEGATIVE (NEGATIVE); LEUKOCYTE ESTERASE ,URINE NEGATIVE (NEGATIVE); NITRATE,URINE NEGATIVE (NEGATIVE); OCCULT BLOOD,URINE NEGATIVE (NEGATIVE); PH,URINE 7.5 (5.0-8.0); PROTEIN,URINE NEGATIVE (NEGATIVE); UROBILINOGEN,URINE 0.2 mg/dL (<=1.0)
[2019-05-06 19:00] LABS: BASOPHILS % (AUTO) 0.5 % (0.0-2.0); EOSINOPHILS % (AUTO) 1.2 % (1.0-6.0); HEMATOCRIT 45.2 % (41-53); LYMPHOCYTES # (AUTO) 2.6 K/uL (1.0-4.8); LYMPHOCYTES % (AUTO) 29.7 % (22.0-44.0); MEAN CORPUSCULAR HEMOGLOBIN 32.6 pg (26.0-34.0); MEAN CORPUSCULAR HGB CONC 33.2 G/dL (31.0-37.0); MEAN CORPUSCULAR VOLUME 98 fL (80-100); MONOCYTES # (AUTO) 0.5 K/uL (0.1-1.0); MONOCYTES % (AUTO) 6.2 % (2.0-9.0); NEUTROPHILS # (AUTO) 5.5 K/uL (1.8-7.7); NEUTROPHILS % (AUTO) 62.4 % (40.0-70.0); PLATELET COUNT (AUTO) 230 K/uL (150-450); RED BLOOD CELL COUNT(AUTO) 4.61 MIL/uL (4.50-5.90); RED CELL DISTRIBUTION WIDTH 13.8 % (11.5-14.5)
[2019-05-06] MEDS ORDERED: LORazepam 1 MG TABLET PO ONE (19:00)
[2019-05-06 19:06] LABS: AMPHET/METH SCREEN,URINE NEGATIVE (NEGATIVE); BARBITURATE SCREEN, URINE NEGATIVE (NEGATIVE); BENZODIAZEPINES SCREEN,URINE NEGATIVE (NEGATIVE); CANNABINOID SCREEN,URINE NEGATIVE (NEGATIVE); COCAINE SCREEN,URINE NEGATIVE (NEGATIVE); METHADONE SCREEN, URINE NEGATIVE (NEGATIVE); OPIATE SCREEN,URINE NEGATIVE (NEGATIVE); PHENCYCLIDINE SCREEN,URINE NEGATIVE (NEGATIVE)
[2019-05-06 19:18] LABS: ANION GAP 11 mmol/L (8-16); CALCIUM, TOTAL 9.6 mg/dL (8.8-10.5); CARBON DIOXIDE 26 mmol/L (22-29); CHLORIDE 101 mmol/L (98-107); GLOMERULAR FILTR. RATE CALC > 60 mL/min (>60); GLUCOSE,RANDOM 99 mg/dL (70-110); POTASSIUM 3.7 mmol/L (3.5-5.1); SODIUM SERUM 138 mmol/L (136-145); UREA NITROGEN, BLOOD 6 mg/dL (7-18)
[2019-05-06 19:20] VITALS: BP 131/81
[2019-05-06 19:27] LABS: B-TYPE NATRIURETIC PEPTIDE 14 pg/mL (0-100)
[2019-05-06 19:43] LABS: ALANINE AMINOTRANSFERASE 45 U/L (12-78); ALBUMIN 3.4 g/dL (3.4-5.0); ALKALINE PHOSPHATASE 99 U/L (46-116); ASPARTATE AMINOTRANSFERASE 25 U/L (15-37); BILIRUBIN,TOTAL 0.3 mg/dL (0.1-1.0); CREATINE KINASE, TOTAL ONLY 91 U/L (39-308); TOTAL PROTEIN, SERUM 7.8 g/dL (6.4-8.2)
== END 2019-05-06 19:50 | disposition left against medical advice (07) ==
LOC: EMS 17:58
DX: F41.9 Anxiety disorder, unspecified (principal); R06.02 Shortness of breath; F31.9 Bipolar disorder, unspecified; E11.9 Type 2 diabetes mellitus without complications; E78.00 Pure hypercholesterolemia, unspecified; F20.9 Schizophrenia, unspecified; F17.210 Nicotine dependence, cigarettes, uncomplicated; Z88.6 Allergy status to analgesic agent; Z91.013 Allergy to seafood; Z91.018 Allergy to other foods; Z79.899 Other long term (current) drug therapy
CPT/HCPCS: 93005

== ENCOUNTER 2019-05-25 12:50 | Emergency (ER) | payer MEDICARE, OTHER ==
[~2019-05-25] VITALS: Ht 177.8 cm; Wt 89.8 kg
[~2019-05-25 12:50] MED LIST changes: +BUSP5TAB20 PO; -CLIN150C9 PO; +GABA-531 PO; +PROP10TA73 PO; -QUET100T PO; +SERT100T12 PO; -SERT50TA12 PO
[2019-05-25 13:29] LABS: GLUCOSE,POINT OF CARE 109 MG/DL (70-110)
[2019-05-25] MEDS ORDERED: SODIUM CHLORIDE 0.9% 1,000 ML IV ONE (14:15)
[2019-05-25] MEDS ORDERED: DIVALPROEX SODIUM 500 MG ER TABLET PO ONE (14:30)
[2019-05-25 14:35] LABS: BASOPHILS % (AUTO) 0.9 % (0.0-2.0); HEMATOCRIT 50.9 % (41-53); LYMPHOCYTES % (AUTO) 23.3 % (22.0-44.0); MEAN CORPUSCULAR HEMOGLOBIN 32.7 pg (26.0-34.0); MEAN CORPUSCULAR HGB CONC 33.4 G/dL (31.0-37.0); MEAN CORPUSCULAR VOLUME 98 fL (80-100); MONOCYTES # (AUTO) 0.6 K/uL (0.1-1.0); MONOCYTES % (AUTO) 6.4 % (2.0-9.0); NEUTROPHILS # (AUTO) 5.9 K/uL (1.8-7.7); NEUTROPHILS % (AUTO) 67.4 % (40.0-70.0); PLATELET COUNT (AUTO) 306 K/uL (150-450); RED CELL DISTRIBUTION WIDTH 13.9 % (11.5-14.5)
[2019-05-25 14:42] LABS: ANION GAP 11 mmol/L (8-16); CALCIUM, TOTAL 9.9 mg/dL (8.8-10.5); CARBON DIOXIDE 26 mmol/L (22-29); CHLORIDE 102 mmol/L (98-107); CREATININE 0.86 mg/dL (0.60-1.30); GLOMERULAR FILTR. RATE CALC > 60 mL/min (>60); GLUCOSE,RANDOM 104 mg/dL (70-110); POTASSIUM 4.1 mmol/L (3.5-5.1); SODIUM SERUM 139 mmol/L (136-145); UREA NITROGEN, BLOOD 9 mg/dL (7-18)
[2019-05-25 14:43] LABS: SALICYLATE 6.1 mg/dL (2.8-20.0)
[2019-05-25] MEDS ORDERED: LORazepam 2 MG/ML VIAL IVP ONE (15:00)
[2019-05-25 15:07] LABS: ALANINE AMINOTRANSFERASE 70 U/L (12-78); ALBUMIN 3.7 g/dL (3.4-5.0); ALKALINE PHOSPHATASE 111 U/L (46-116); ASPARTATE AMINOTRANSFERASE 29 U/L (15-37); BILIRUBIN,TOTAL 0.3 mg/dL (0.1-1.0); CREATINE KINASE, TOTAL ONLY 91 U/L (39-308); TOTAL PROTEIN, SERUM 8.1 g/dL (6.4-8.2)
[2019-05-25 15:09] LABS: ACETAMINOPHEN < 2 mcg/mL (10-30)
[2019-05-25 15:50] VITALS: BP 137/77
== END 2019-05-25 15:51 | disposition home or self-care (01) ==
LOC: EMS 12:52
DX: F41.9 Anxiety disorder, unspecified (principal); F20.9 Schizophrenia, unspecified; F31.9 Bipolar disorder, unspecified; E11.9 Type 2 diabetes mellitus without complications; E78.00 Pure hypercholesterolemia, unspecified; F17.210 Nicotine dependence, cigarettes, uncomplicated; Z76.0 Encounter for issue of repeat prescription; Z88.6 Allergy status to analgesic agent; Z91.013 Allergy to seafood; Z88.8 Allergy status to other drugs, medicaments and biological substances; Z91.018 Allergy to other foods
CPT/HCPCS: 36415; 80053; 82550; 82962; 85025; 99283; G0480; J7030; G0481; J2060